=== PATIENT | male | born 1945 | race African-American/Black ===

== ENCOUNTER 2018-06-19 17:20 | Emergency (ER) | payer OTHER ==
[2018-06-19 19:02] LABS: Absolute Lymphocytes (CBC) 2.3 K/uL (0.7-4.9); Absolute Monocytes 0.4 K/uL (0.1-1.3); Absolute Neutrophil 2.4 K/uL (1.8-8.0); Basophils % 1.4 % (0-1.3); Eosinophils % 10.5 % (0-4.4); Lymphocytes % 39.4 % (15.3-44.8); MCH 30.8 pg (27.0-35.0); MCV 92.9 fL (80-100); MPV 8.6 fL (7.6-11.3); Monocytes % 7.3 % (3.3-12.3); RBC Red Blood Cell Count 4.19 M/uL (4.33-5.43)
[2018-06-19 19:17] LABS: Urine RBC >50 /HPF (NONE SEEN)
[2018-06-19 19:18] LABS: Calcium Oxalate Crystals- Ur MODERATE (NONE SEEN); Urine Bacteria >50 /HPF (NONE SEEN); Urine Culture Reflex Order REFLEXED; Urine Yeast FEW (NONE SEEN)
[2018-06-19 19:18] LABS: ALT/SGPT 17 U/L (12-78); AST/SGOT 8 U/L (15-37); Albumin 3.9 g/dL (3.4-5.0); Alkaline Phosphatase 63 U/L (45-117); BUN Blood Urea Nitrogen 27 mg/dL (7-18); Bicarbonate 26 mmol/L (21-32); Bilirubin Direct < 0.1 mg/dL (0-0.2); Bilirubin Total 0.2 mg/dL (0.2-1.0); Glucose Level 111 mg/dL (74-106); Lipase 165 U/L (73-393); Potassium 3.8 mmol/L (3.5-5.1); Protein, Total 7.4 g/dL (6.4-8.2); Sodium Level 144 mmol/L (136-145)
--- NOTE | 2018-06-19 19:27 | RAD REPORT ---
EXAM DESCRIPTION: CT - Stone Protocol - 06/19/2018 7:03 pm CLINICAL HISTORY: Abdominal pain, flank pain on the left, hematuria COMPARISON: KUB June 17. TECHNIQUE: Axial 5 mm thick images were obtained without oral or IV contrast. The [id number] span s the entirety of the system including uppermost abdomen and lung bases. All CT scans are performed using dose optimization technique as appropriate and may include automated exposure control or mA/KV adjustment according to patient size. FINDINGS: Patient has a 9 millimeter calcification in the left renal pelvis. There is very mild dila tation of the pelvis and calices on the left. Remainder the ureter is decompressed. No other obstruct ing or nonobstructing ureteral calculus. Patient has punctate calyx calcification posterior mid left kidney. No hydronephrosis or stone on the right. No suspicious renal masses. Isodense masses and pyel onephritis are not excluded on a stone protocol CT scan. Partially filled urinary bladder shows no smith spicious finding. Imaged portions of the liver, spleen and pancreas show no suspicious findings on non-contrast imaging . No gallbladder or biliary tree abnormality identified. No significant adrenal finding. No suspicious bowel findings. No mass or bulky lymphadenopathy. Patient has bilateral fat filled inguinal hernias. No acute compone nt at the hernia site. No free air, free fluid or inflammatory stranding. No significant bony abnormality. IMPRESSION: Approximately 9 millimeter left renal pelvis calcification causing mild dilatation of th e pelvis and calices. On a KUB projection the stone is near the left lateral margin of the L2-3 disc space. On retrospective review of the June 17 KUB, the calcification may be present superimposed on the the L2 left transverse process tip. Isodense masses and pyelonephritis are not excluded on stone protocol technique.
--- NOTE | 2018-06-19 20:02 | ER ---
Nurse's Notes [facility] Name: Bernard Smith Age: 72 yrs Sex: Male : 1945 Arrival Date: 06/19/2018 Time: 17:24 Bed 14 Private MD: Diagnosis: Calculus of kidney-Left Presentation: 06/19 17:24 Presenting complaint: Patient states: i have discoloration in my urine, its color red; hj it started Saturday, denies painful urination; reports minimal pain on the L flank area; denies fever and chills, nausea and vomiting; was sent by PCP for follow up to a urologist for the problem but couldn't get an appointment;. Transition of care: patient was not received from another setting of care. Onset of symptoms was June 19, 2018. Risk Assessment: Do you want to hurt yourself or someone else? Patient reports no desire to harm self or others. Initial Sepsis Screen: Does the patient meet any 2 criteria? No. Patient's initial sepsis screen is negative. Does the patient have a suspected source of infection? No. Patient's initial sepsis screen is negative. Care prior to arrival: None. 17:24 Method Of Arrival: Ambulatory 17:24 Acuity: ANDREY 4 hj Triage Assessment: 17:27 General: Appears in no apparent distress. uncomfortable, Behavior is calm, cooperative, hj appropriate for age. Pain: Denies pain. Historical: - Allergies: 17:26 No Known Allergies; hj - PMHx: 17:26 Hypertension; Diabetes - NIDDM; hj - PSHx: 17:26 None; hj - Immunization history:: Adult Immunizations up to date. - Social history:: Smoking status: Patient/guardian denies using tobacco, Patient uses alcohol. - Ebola Screening: : Patient negative for fever greater than or equal to 101.5 degrees Fahrenheit, and additional compatible Ebola Virus Disease symptoms Patient denies exposure to infectious person Patient denies travel to an Ebola-affected area in the 21 days before illness onset. Screenin:27 Abuse screen: Denies threats or abuse. Denies injuries from another. Nutritional hj screening: No deficits noted. Tuberculosis screening: No symptoms or risk factors identified. Fall Risk None identified. Assessment: 18:55 General: Appears in no apparent distress. comfortable, Behavior is calm, cooperative, jl7 appropriate for age. Pain: Denies pain. Neuro: Level of Consciousness is awake, alert, obeys commands, Oriented to person, place, time, situation. Cardiovascular: Patient's skin is warm and dry. Respiratory: Airway is patent Respiratory effort is even, unlabored, Respiratory pattern is regular, symmetrical. GI: No signs and/or symptoms were reported involving the gastrointestinal system. : Reports red colored urine Denies pain. EENT: No signs and/or symptoms were reported regarding the EENT system. Derm: Skin is dry, Skin is normal, Skin temperature is warm. Musculoskeletal: No signs and/or symptoms reported regarding the musculoskeletal system. 19:05 Reassessment: Returned from CT. ea 19:08 General: Appears in no apparent distress. Behavior is calm, cooperative, appropriate ea for age. Pain: Denies pain. Neuro: Level of Consciousness is awake, alert, obeys commands, Oriented to person, place, time, situation. Cardiovascular: Patient's skin is warm and dry. Respiratory: Airway is patent Respiratory effort is even, unlabored, Respiratory pattern is regular, symmetrical. GI: No signs and/or symptoms were reported involving the gastrointestinal system. : Reports pt reports red tinged urine. EENT: No signs and/or symptoms were reported regarding the EENT system. Derm: Skin is dry, Skin is normal, Skin temperature is warm. Musculoskeletal: No signs and/or symptoms reported regarding the musculoskeletal system. 20:18 Reassessment: Patient and/or family updated on plan of care and expected duration. Pain ea level reassessed. Patient is alert, oriented x 3, equal unlabored respirations, skin warm/dry/pink. Discharge instructions given to patient, verbalized the understanding of instruction Patient states feeling better. Vital Signs: 17:28 BP 163 / 80; Pulse 64; Resp 18; Temp 96.8(O); Pulse Ox 98% on R/A; Weight 127.01 kg; Height 6 ft. 4 in. (193.04 cm); Pain 0/10; 19:18 BP 160 / 98; Pulse 55; Resp 18; Pulse Ox 97% ; ea 20:20 BP 173 / 68; Pulse 60; Resp 18; Temp 97.6; Pulse Ox 100% ; ea 17:28 Body Mass Index 34.08 (127.01 kg, 193.04 cm) hj ED Course: 17:24 Patient arrived in ED. hj 17:26 Triage completed. hj 17:28 Arm band placed on left wrist. hj 17:28 Patient has correct armband on for positive identification. Bed in low position. Call hj light in reach. Side rails up X 1. 18:21 Rito Eisenberg PA is PHCP. cp 18:21 Thony Lobo MD is Attending Physician. cp 18:43 Rosemary Brar, JAREN is Primary Nurse. jl 18:[address] nj 18:55 Initial lab(s) drawn, by me, sent to lab. Inserted saline lock: 20 gauge in right jl7 antecubital area, using aseptic technique. Blood collected. 19:03 CT completed. Patient tolerated procedure well. Patient moved back from [place]. nj 19:04 CT Stone Protocol In Process Unspecified. EDMS 20:01 Abdiel Rueda MD is Referral Physician. cp 20:17 No provider procedures requiring assistance completed. IV discontinued, intact, ea bleeding controlled, No redness/swelling at site. Pressure dressing applied. Administered Medications: 20:08 Drug: Rocephin 1 grams Route: IV; Rate: bolus; Site: right antecubital; ea 20:20 Follow up: Response: No adverse reaction; IV Status: Completed infusion ea 20:15 Drug: Cipro 500 mg Route: PO; ea 20:23 Follow up: Response: No adverse reaction ea Outcome: 20:02 Discharge ordered by . cp 20:17 Condition: improved ea 20:17 Instructed on discharge instructions, Demonstrated understanding of instructions, follow-up care, medications, Prescriptions given X 3. 20:23 Discharged to home ambulatory, with family. ea 20:24 Patient left the ED. ea Signatures: Dispatcher [employer] EDMS Canelo Fraga RN RN hj Page, Corey, PA PA cp Jordan, Nathan nj Leal, Jahala, RN RN jl7 Era Zhu RN RN ea Corrections: (The following items were deleted from the chart) 17:28 17:24 Presenting complaint: Patient states: i have discoloration in my urine, its color hj red; it started Saturday, denies painful urination; reports minimal pain on the L flank area; denies fever and chills, nausea and vomiting; hj 17:32 17:28 Pulse 64bpm; Resp 18bpm; Pulse Ox 98% RA; Temp 96.8F Oral; 127.01 kg; Height 6 hj ft. 4 in.; BMI: 34.0; Pain 0/10; hj
--- NOTE | 2018-06-19 20:02 | EDPHYS ---
Physician Documentation [facility] Name: Bernard Smith Age: 72 yrs Sex: Male : 1945 Arrival Date: 06/19/2018 Time: 17:24 Bed 14 Private MD: ED Physician Thony Lobo HPI: 06/19 18:15 This 72 yrs old Black Male presents to ER via Ambulatory with complaints of Urinary cp Problem. 18:15 The patient presents with urinary symptoms, hematuria. cp 18:15 Onset: The symptoms/episode began/occurred 4 day(s) ago. Associated signs and symptoms: cp Pertinent positives: hematuria, left flank pain, Pertinent negatives: abdominal pain, fever, vomiting. Severity of symptoms: in the emergency department the symptoms are unchanged, despite EMS interventions. Historical: - Allergies: 17:26 No Known Allergies; hj - PMHx: 17:26 Hypertension; Diabetes - NIDDM; hj - PSHx: 17:26 None; hj - Immunization history:: Adult Immunizations up to date. - Social history:: Smoking status: Patient/guardian denies using tobacco, Patient uses alcohol. - Ebola Screening: : Patient negative for fever greater than or equal to 101.5 degrees Fahrenheit, and additional compatible Ebola Virus Disease symptoms Patient denies exposure to infectious person Patient denies travel to an Ebola-affected area in the 21 days before illness onset. ROS: 18:20 Constitutional: Negative for body aches, chills, fever, poor PO intake. cp 18:20 Eyes: Negative for injury, pain, redness, and discharge. cp 18:20 ENT: Negative for drainage from ear(s), ear pain, sore throat, difficulty swallowing, difficulty handling secretions. 18:20 Cardiovascular: Negative for chest pain, edema, palpitations. 18:20 Respiratory: Negative for cough, shortness of breath, wheezing. 18:20 Abdomen/GI: Negative for abdominal pain, nausea, vomiting, and diarrhea, black/tarry stool, rectal bleeding. 18:20 Back: Positive for flank pain, on the left, Negative for injury or acute deformity, decreased range of motion, pain at rest, pain with movement. 18:20 : Positive for hematuria, Negative for burning with urination. 18:20 Skin: Negative for cellulitis, rash. 18:20 Neuro: Negative for dizziness, headache, weakness. 18:20 All other systems are negative. Exam: 18:25 Constitutional: The patient appears in no acute distress, alert, awake, comfortable, cp non-diaphoretic, non-toxic, well developed, well nourished. 18:25 Head/Face: Normocephalic, atraumatic. cp 18:25 Eyes: Periorbital structures: appear normal, Conjunctiva: normal, no exudate, no injection, Sclera: no appreciated abnormality, Lids and lashes: appear normal, bilaterally. 18:25 ENT: External ear(s): are unremarkable, Nose: is normal, Mouth: Lips: moist, Oral mucosa: pink and intact, moist, Posterior pharynx: is normal, airway is patent, no erythema, no exudate. 18:25 Neck: ROM/movement: is normal, is supple, without pain, no range of motions limitations, no nuchal rigidity. 18:25 Chest/axilla: Inspection: normal, Palpation: is normal, no crepitus, no tenderness. 18:25 Cardiovascular: Rate: normal, Rhythm: regular. 18:25 Respiratory: the patient does not display signs of respiratory distress, Respirations: normal, no use of accessory muscles, no retractions, no splinting, no tachypnea, labored breathing, is not present, Breath sounds: are clear throughout, no decreased breath sounds, no stridor, no wheezing. 18:25 Abdomen/GI: Inspection: abdomen appears normal, Bowel sounds: active, all quadrants, Palpation: abdomen is soft and non-tender, in all quadrants, rebound tenderness, is not appreciated, voluntary guarding, is not appreciated, involuntary guarding, is not appreciated. 18:25 Back: CVA tenderness, that is mild, is noted on the left. 18:25 Skin: cellulitis, is not appreciated, no rash present. Vital Signs: 17:28 BP 163 / 80; Pulse 64; Resp 18; Temp 96.8(O); Pulse Ox 98% on R/A; Weight 127.01 kg; hj Height 6 ft. 4 in. (193.04 cm); Pain 0/10; 19:18 BP 160 / 98; Pulse 55; Resp 18; Pulse Ox 97% ; ea 20:20 BP 173 / 68; Pulse 60; Resp 18; Temp 97.6; Pulse Ox 100% ; ea 17:28 Body Mass Index 34.08 (127.01 kg, 193.04 cm) MDM: 18:21 Patient medically screened. 19:00 Differential diagnosis: UTI, prostatitis, urethritis, kidney stone. 19:59 Physician consultation: Abdiel Rueda MD was called at 19:50, was contacted at 19:50, regarding patient's condition, outpatient follow-up, tomorrow, and will see patient in office, tomorrow. 20:01 Data reviewed: vital signs, nurses notes, lab test result(s), radiologic studies, CT cp scan. 20:01 Counseling: I had a detailed discussion with the patient and/or guardian regarding: the cp historical points, exam findings, and any diagnostic results supporting the discharge/admit diagnosis, lab results, radiology results, the need for outpatient follow up, for definitive care, a urologist, to return to the emergency department if symptoms worsen or persist or if there are any questions or concerns that arise at home. 06/19 17:59 Order name: Urine Microscopic Only; Complete Time: 19:20 06/19 19:20 Interpretation: Normal except: URBC >50; UBACT >50; CAOX MODERATE. 06/19 18:43 Order name: Basic Metabolic Panel; Complete Time: 19:20 /13 19:45 Interpretation: Normal except: CL 113; GLUC 111; BUN 27; GFR 89. /13 18:43 Order name: CBC with Diff; Complete Time: 19:20 /13 19:46 Interpretation: Normal except: RBC 4.19; HGB 12.9; HCT 39.0; ALEXUS% 41.4; EOSINOPHIL % cp 10.5; BASO% 1.4; EOSA 0.6. 06/19 18:43 Order name: Creatinine for Radiology; Complete Time: 19:20 06/19 18:43 Order name: Hepatic Function; Complete Time: 19:20 12/13 19:46 Interpretation: Normal except: AST 8. 06/19 18:43 Order name: Lipase; Complete Time: 19:20 /13 17:59 Order name: Urine Dipstick-Ancillary (obtain specimen); Complete Time: 17:59 06/19 18:43 Order name: IV Saline Lock; Complete Time: 18:59 06/19 18:43 Order name: Labs collected and sent; Complete Time: 18:59 06/19 18:48 Order name: CT Stone Protocol; Complete Time: 19:44 06/19 19:20 Order name: Urine Culture EDMS Administered Medications: 20:08 Drug: Rocephin 1 grams Route: IV; Rate: bolus; Site: right antecubital; ea 20:20 Follow up: Response: No adverse reaction; IV Status: Completed infusion ea 20:15 Drug: Cipro 500 mg Route: PO; ea 20:23 Follow up: Response: No adverse reaction ea Disposition: 06/19/18 20:02 Discharged to Home. Impression: Calculus of kidney - Left. - Condition is Stable. - Discharge Instructions: Kidney Stones. - Prescriptions for Cipro 500 mg Oral Tablet - take 1 tablet by ORAL route every 12 hours for 7 days; 14 tablet. Tylenol- Codeine #3 300-30 mg Oral Tablet - take 2 tablets by ORAL route every 6 hours As needed; 15 tablet. Zofran 4 mg Oral Tablet - take 1 tablet by ORAL route every 12 hours As needed; 20 tablet. - Medication Reconciliation Form, Thank You Letter, Antibiotic Education, Prescription Opioid Use form. - Follow up: Abdiel Rueda MD; When: Tomorrow; Reason: Recheck today's complaints, at 0800. - Problem is new. - Symptoms have improved. Signatures: Dispatcher [employer] EDMS Canelo Fraga RN RN Rito Landeros PA PA cp Antunez, Elena, RN RN ivan Corrections: (The following items were deleted from the chart) 19:46 19:46 Normal except: RBC 4.19; HGB 12.9; HCT 39.0; ALEXUS% 41.4; EOSINOPHIL % 10.5; BASO% cp 1.4. cp 20:24 20:02 06/19/2018 20:02 Discharged to Home. Impression: Calculus of kidney - Left. ea Condition is Stable. Forms are Medication Reconciliation Form, Thank You Letter, Antibiotic Education, Prescription Opioid Use. Follow up: Abdiel Rueda; When: Tomorrow; Reason: Recheck today's complaints, at 0800. Problem is new. Symptoms have improved. cp
[2018-06-19] MEDS ORDERED: CEFTRIAXONE/SWI 1gm 1 GM/10 ML SYR ONE (20:18)
[2018-06-19] MEDS ORDERED: CIPROFLOXACIN HCL 500 MG TAB ONE (20:18)
== END 2018-06-19 20:24 | disposition home or self-care (01) ==
LOC: ER 17:20
DX: N20.0 Calculus of kidney (principal); I10 Essential (primary) hypertension
CPT/HCPCS: 36415; 74176; 76377; 80048; 80076; 81015; 83690; 85025; 87086; 87088; 96374; 99284; J0696

== ENCOUNTER 2023-09-13 11:12 | Inpatient (IN) | payer OTHER ==
--- OUTSIDE RECORDS SUMMARY | 2023-09-13 11:15 | XMS REPORT | Continuity of Care Document ---
Author Name Unknown Address [address] [facility] [address] [place] [id number] [facility] Address [address] [facility] [address] [place] [address] Care Team Providers Care Restaurant Assistant Manager Name Role Phone Calixto Greene Attending Clinician Unavailable Lab, Adc Fam Pob I Attending Clinician Unavailab Amrita Gardner Attending Clinician AMRITA LLOYD Attending Clinician Unavailable Payers Payer Name Policy Type Policy Number Effective Date Expirati on Date Source MEDICARE NOVITAS MB [id number] 2011 00:00:00 [facility] AET[employer] C1 [id number] 2020 00:00:00 [facility] A[employer] MEDICARE ADV [id number] 2019 00:00:00 Problems Condition Name Condition Details Condition Category Status Onset Date Resolution Date Last Treatment Date Treating Clinician Comments Source [id number] Overactive bladder Problem [facility] [id number] Elevated PSA, less than 10 ng/ml Problem [facility] [id number] Memory change Problem [facility] [id number] Prostate nodule Problem [facility] [id number] Urge incontinen ce Problem [facility] [id number] Benign prostatic hyperplasi a with lower urinary tract symptoms Problem [facility] [id number] Family history of prostate cancer in father Problem [facility] [id number] Microscopi c hematuria Problem [facility] [id number] Adult BMI 33.0-33.9 kg/sq m Problem [facility] [id number] assisted (current) use of insulin Problem [facility] [id number] Prostate cancer screening Problem [facility] [id number] Type 2 diabetes mellitus with other diabetic kidney complicati on Problem [facility] [id number] Morbid (severe) obesity due to excess calories Problem [facility] [id number] Type 2 diabetes mellitus with hyperglyce erasto Problem [facility] [id number] Mixed hyperlipid emia Problem [facility] [id number] Hypertensi on, essential Problem [facility] [id number] Other obstructiv e and reflux uropathy Problem [facility] [id number] Left nephrolith iasis Problem [facility] Allergies, Adverse Reactions, Alerts Allergy Name Allergy Type Status Severity Reaction(s) Onset Date Inactive Date Treating Clinician Comments Source NO KNOWN ALLERGIE S Drug Class Active [facility] Social History Social Habit Start Date Stop Date Quantity Comments Source History of Tobacco Use [facility] Sex Assigned At [facility] Exposure to SARS-CoV-2 (event) Not sure [facility] Smoking Status Start Date Stop Date Source Unknown if ever smoked [facility] Never Smoker [facility] Former Smoker 2022-08-09 00:00:00 2022-08-09 00:00:00 [facility] Medications Ordered Medication Name Filled Medication Name Start Date Stop Date Current Medication? Ordering Clinician Indication Dosage Frequency Signature (SIG) Comments Components Source Tamsulosin HCl 0.4 MG Tamsulosin HCl 0.4 MG 02-06 00:00: 00 No 1{capsu le} BID Tamsulosin HCl 0.4 MG Tamsulosin HCl 0.4 MG Tamsulosin HCl 0.4 MG 02 00:00: 00 No 1{capsu le} BID Tamsulosin HCl 0.4 MG Simvastatin 20 MG Simvastatin 20 MG No 1{table t_in e_eveni ng} QD Simvastati n 20 MG metFORMIN HCl ER 500 MG metFORMIN HCl ER 500 MG No 2{table t} BID metFORMIN HCl ER 500 MG Tresiba FlexTouch 100 UNIT/ML Tresiba FlexTouch 100 UNIT/ML No QD Tresiba FlexTouch 100 UNIT/ML NovoFine Plus 32G X 4 MM NovoFine Plus 32G X 4 MM No NovoFine Plus 32G X 4 MM amLODIPine Besylate 10 MG amLODIPine Besylate 10 MG No 1{table t} QD amLODIPine Besylate 10 MG NovoFine Plus 32G X 4 MM NovoFine Plus 32G X 4 MM No QD NovoFine Plus 32G X 4 MM Lisinopril- hydroCHLORO thiazide 20-12.5 MG Lisinopril- hydroCHLORO thiazide 20-12.5 MG No 1{table t} TID Lisinopril -hydroCHLO ROthiazide 20-12.5 MG Lisinopril- hydroCHLORO thiazide 20-12.5 MG Lisinopril- hydroCHLORO thiazide 20-12.5 MG No 1{table t} TID Lisinopril -hydroCHLO ROthiazide 20-12.5 MG Aspirin 81 81 MG Aspirin 81 81 MG No 1{table t} QD Aspirin 81 81 MG metFORMIN HCl ER 500 MG metFORMIN HCl ER 500 MG No metFORMIN HCl ER 500 MG Vitamin D3 25 MCG/SPRAY Vitamin D3 25 MCG/SPRAY No 1{spray _under_ the_ton avril} QD Vitamin D3 25 MCG/SPRAY Metoprolol Succinate ER 100 MG Metoprolol Succinate ER 100 MG No 1{table t} QD Metoprolol Succinate ER 100 MG Metoprolol Succinate ER 100 MG Metoprolol Succinate ER 100 MG No Metoprolol Succinate ER 100 MG Simvastatin 20 MG Simvastatin 20 MG No 1{table t_in e_eveni ng} QD Simvastati n 20 MG metFORMIN HCl ER 500 MG metFORMIN HCl ER 500 MG No 2{table t} BID metFORMIN HCl ER 500 MG Tresiba FlexTouch 100 UNIT/ML Tresiba FlexTouch 100 UNIT/ML No QD Tresiba FlexTouch 100 UNIT/ML NovoFine Plus 32G X 4 MM NovoFine Plus 32G X 4 MM No NovoFine Plus 32G X 4 MM Metoprolol Succinate ER 100 MG Metoprolol Succinate ER 100 MG No 1{table t} QD Metoprolol Succinate ER 100 MG NovoFine Plus 32G X 4 MM NovoFine Plus 32G X 4 MM No QD NovoFine Plus 32G X 4 MM Lisinopril- hydroCHLORO thiazide 20-12.5 MG Lisinopril- hydroCHLORO thiazide 20-12.5 MG No 1{table t} TID Lisinopril -hydroCHLO ROthiazide 20-12.5 MG Lisinopril- hydroCHLORO thiazide 20-12.5 MG Lisinopril- hydroCHLORO thiazide 20-12.5 MG No 1{table t} TID Lisinopril -hydroCHLO ROthiazide 20-12.5 MG Aspirin 81 81 MG Aspirin 81 81 MG No 1{table t} QD Aspirin 81 81 MG metFORMIN HCl ER 500 MG metFORMIN HCl ER 500 MG No metFORMIN HCl ER 500 MG Vitamin D3 25 MCG/SPRAY Vitamin D3 25 MCG/SPRAY No 1{spray _under_ the_ton avril} QD Vitamin D3 25 MCG/SPRAY amLODIPine Besylate 10 MG amLODIPine Besylate 10 MG No 1{table t} QD amLODIPine Besylate 10 MG Metoprolol Succinate ER 100 MG Metoprolol Succinate ER 100 MG No Metoprolol Succinate ER 100 MG amLODIPine Besylate 10 MG amLODIPine Besylate 10 MG No 1{table t} QD amLODIPine Besylate 10 MG Lisinopril- hydroCHLORO thiazide 20-12.5 MG Lisinopril- hydroCHLORO thiazide 20-12.5 MG No 1{table t} TID Lisinopril -hydroCHLO ROthiazide 20-12.5 MG Tresiba FlexTouch 100 UNIT/ML Tresiba FlexTouch 100 UNIT/ML No QD Tresiba FlexTouch 100 UNIT/ML Metoprolol Succinate ER 100 MG Metoprolol Succinate ER 100 MG No 1{table t} QD Metoprolol Succinate ER 100 MG Simvastatin 20 MG Simvastatin 20 MG No 1{table t_in_th e_eveni ng} QD Simvastati n 20 MG NovoFine Plus 32G X 4 MM NovoFine Plus 32G X 4 MM No NovoFine Plus 32G X 4 MM metFORMIN HCl ER 500 MG metFORMIN HCl ER 500 MG No 2{table t} BID metFORMIN HCl ER 500 MG amLODIPine Besylate 10 MG amLODIPine Besylate 10 MG No 1{table t} QD amLODIPine Besylate 10 MG Lisinopril- hydroCHLORO thiazide 20-12.5 MG Lisinopril- hydroCHLORO thiazide 20-12.5 MG No 1{table t} TID Lisinopril -hydroCHLO ROthiazide 20-12.5 MG Tresiba FlexTouch 100 UNIT/ML Tresiba FlexTouch 100 UNIT/ML No QD Tresiba FlexTouch 100 UNIT/ML Metoprolol Succinate ER 100 MG Metoprolol Succinate ER 100 MG No 1{table t} QD Metoprolol Succinate ER 100 MG Simvastatin 20 MG Simvastatin 20 MG No 1{table t_in_ e_eveni ng} QD Simvastati n 20 MG NovoFine Plus 32G X 4 MM NovoFine Plus 32G X 4 MM No NovoFine Plus 32G X 4 MM metFORMIN HCl ER 500 MG metFORMIN HCl ER 500 MG No 2{table t} BID metFORMIN HCl ER 500 MG Simvastatin 20 MG Simvastatin 20 MG No 1{table t_in_ e_eveni ng} QD Simvastati n 20 MG Simvastatin 20 MG Simvastatin 20 MG No 1{table t_in e_eveni ng} QD Simvastati n 20 MG Metoprolol Succinate ER 100 MG Metoprolol Succinate ER 100 MG No 1{table t} QD Metoprolol Succinate ER 100 MG metFORMIN HCl ER 500 MG metFORMIN HCl ER 500 MG No metFORMIN HCl ER 500 MG metFORMIN HCl ER 500 MG metFORMIN HCl ER 500 MG No 2{table t} BID metFORMIN HCl ER 500 MG Metoprolol Succinate ER 100 MG Metoprolol Succinate ER 100 MG No Metoprolol Succinate ER 100 MG Tresiba FlexTouch 100 UNIT/ML Tresiba FlexTouch 100 UNIT/ML No QD Tresiba FlexTouch 100 UNIT/ML amLODIPine Besylate 10 MG amLODIPine Besylate 10 MG No 1{table t} QD amLODIPine Besylate 10 MG NovoFine Plus 32G X 4 MM NovoFine Plus 32G X 4 MM No NovoFine Plus 32G X 4 MM Lisinopril- hydroCHLORO thiazide 20-12.5 MG Lisinopril- hydroCHLORO thiazide 20-12.5 MG No 1{table t} QD Lisinopril -hydroCHLO ROthiazide 20-12.5 MG Simvastatin 20 MG Simvastatin 20 MG No 1{table t_in e_eveni ng} QD Simvastati n 20 MG metFORMIN HCl ER 500 MG metFORMIN HCl ER 500 MG No metFORMIN HCl ER 500 MG Metoprolol Succinate ER 100 MG Metoprolol Succinate ER 100 MG No Metoprolol Succinate ER 100 MG Simvastatin 20 MG Simvastatin 20 MG No 1{table t_in e_eveni ng} QD Simvastati n 20 MG Lisinopril- hydroCHLORO thiazide 20-12.5 MG Lisinopril- hydroCHLORO thiazide 20-12.5 MG No Lisinopril -hydroCHLO ROthiazide 20-12.5 MG Tresiba FlexTouch 100 UNIT/ML Tresiba FlexTouch 100 UNIT/ML No QD Tresiba FlexTouch 100 UNIT/ML amLODIPine Besylate 10 MG amLODIPine Besylate 10 MG No 1{table t} QD amLODIPine Besylate 10 MG metFORMIN HCl ER 500 MG metFORMIN HCl ER 500 MG No 2{table t} BID metFORMIN HCl ER 500 MG NovoFine Plus 32G X 4 MM NovoFine Plus 32G X 4 MM No NovoFine Plus 32G X 4 MM Lisinopril- hydroCHLORO thiazide 20-12.5 MG Lisinopril- hydroCHLORO thiazide 20-12.5 MG No 1{table t} QD Lisinopril -hydroCHLO ROthiazide 20-12.5 MG Metoprolol Succinate ER 100 MG Metoprolol Succinate ER 100 MG No 1{table t} QD Metoprolol Succinate ER 100 MG Aspir-81 Aspir-81 No Aspir-81 Metoprolol Succinate ER 100 MG Metoprolol Succinate ER 100 MG No 1{table t} QD Metoprolol Succinate ER 100 MG Vitamin D3 Vitamin D3 No Vitamin D3 Lisinopril- hydroCHLORO thiazide 20-12.5 MG Lisinopril- hydroCHLORO thiazide 20-12.5 MG No 1{table t} BID Lisinopril -hydroCHLO ROthiazide 20-12.5 MG Iron Iron No Iron NovoFine Plus 32G X 4 MM NovoFine Plus 32G X 4 MM No NovoFine Plus 32G X 4 MM metFORMIN HCl ER 500 MG metFORMIN HCl ER 500 MG No metFORMIN HCl ER 500 MG Vitamin B Complex Vitamin B Complex No Vitamin B Complex Lisinopril- hydroCHLORO thiazide 20-12.5 MG Lisinopril- hydroCHLORO thiazide 20-12.5 MG No Lisinopril -hydroCHLO ROthiazide 20-12.5 MG metFORMIN HCl ER 500 MG metFORMIN HCl ER 500 MG No 2{table t} BID metFORMIN HCl ER 500 MG Vitamin B12 Vitamin B12 No Vi tamin B12 Simvastatin 20 MG Simvastatin 20 MG No 1{table t_in e_eveni ng} QD Simvastati n 20 MG Donepezil HCl 23 MG Donepezil HCl 23 MG No 1{table t_at_be dtime} QD Donepezil HCl 23 MG Simvastatin 20 MG Simvastatin 20 MG No 1{table t_in e_eveni ng} QD Simvastati n 20 MG Metoprolol Succinate ER 100 MG Metoprolol Succinate ER 100 MG No Metoprolol Succinate ER 100 MG Tresiba FlexTouch 100 UNIT/ML Tresiba FlexTouch 100 UNIT/ML No QD Tresiba FlexTouch 100 UNIT/ML amLODIPine Besylate 10 MG amLODIPine Besylate 10 MG No 1{table t} QD amLODIPine Besylate 10 MG Aspir-81 Aspir-81 No Aspir-81 Metoprolol Succinate ER 100 MG Metoprolol Succinate ER 100 MG No 1{table t} QD Metoprolol Succinate ER 100 MG Vitamin D3 Vitamin D3 No Vitamin D3 Lisinopril- hydroCHLORO thiazide 20-12.5 MG Lisinopril- hydroCHLORO thiazide 20-12.5 MG No 1{table t} BID Lisinopril -hydroCHLO ROthiazide 20-12.5 MG Iron Iron No Iron NovoFine Plus 32G X 4 MM NovoFine Plus 32G X 4 MM No NovoFine Plus 32G X 4 MM metFORMIN HCl ER 500 MG metFORMIN HCl ER 500 MG No metFORMIN HCl ER 500 MG Vitamin B Complex Vitamin B Complex No Vitamin B Complex Lisinopril- hydroCHLORO thiazide 20-12.5 MG Lisinopril- hydroCHLORO thiazide 20-12.5 MG No Lisinopril -hydroCHLO ROthiazide 20-12.5 MG metFORMIN HCl ER 500 MG metFORMIN HCl ER 500 MG No 2{table t} BID metFORMIN HCl ER 500 MG Vitamin B12 Vitamin B12 No Vi tamin B12 Simvastatin 20 MG Simvastatin 20 MG No 1{table t_in e_eveni ng} QD Simvastati n 20 MG Donepezil HCl 23 MG Donepezil HCl 23 MG No 1{table t_at_be dtime} QD Donepezil HCl 23 MG Simvastatin 20 MG Simvastatin 20 MG No 1{table t_in e_eveni ng} QD Simvastati n 20 MG Metoprolol Succinate ER 100 MG Metoprolol Succinate ER 100 MG No Metoprolol Succinate ER 100 MG Tresiba FlexTouch 100 UNIT/ML Tresiba FlexTouch 100 UNIT/ML No QD Tresiba FlexTouch 100 UNIT/ML amLODIPine Besylate 10 MG amLODIPine Besylate 10 MG No 1{table t} QD amLODIPine Besylate 10 MG Iron Iron No Iron Tresiba FlexTouch 100 UNIT/ML Tresiba FlexTouch 100 UNIT/ML No QD Tresiba FlexTouch 100 UNIT/ML Metoprolol Succinate ER 100 MG Metoprolol Succinate ER 100 MG No 1{table t} QD Metoprolol Succinate ER 100 MG Metoprolol Succinate ER 100 MG Metoprolol Succinate ER 100 MG No 1{table t} QD Metoprolol Succinate ER 100 MG Simvastatin 20 MG Simvastatin 20 MG No 1{table t_in e_eveni ng} QD Simvastati n 20 MG Vitamin B12 Vitamin B12 No Vi tamin B12 metFORMIN HCl ER 500 MG metFORMIN HCl ER 500 MG No 2{table t} BID metFORMIN HCl ER 500 MG Tamsulosin HCl 0.4 MG Tamsulosin HCl 0.4 MG No 1{capsu le} QD Tamsulosin HCl 0.4 MG Vitamin D3 Vitamin D3 No Vitamin D3 amLODIPine Besylate 10 MG amLODIPine Besylate 10 MG No 1{table t} QD amLODIPine Besylate 10 MG NovoFine Plus 32G X 4 MM NovoFine Plus 32G X 4 MM No NovoFine Plus 32G X 4 MM amLODIPine Besylate 10 MG amLODIPine Besylate 10 MG No 1{table t} QD amLODIPine Besylate 10 MG Vitamin B Complex Vitamin B Complex No Vitamin B Complex Lisinopril- hydroCHLORO thiazide 20-12.5 MG Lisinopril- hydroCHLORO thiazide 20-12.5 MG No 1{table t} QD Lisinopril -hydroCHLO ROthiazide 20-12.5 MG Donepezil HCl 23 MG Donepezil HCl 23 MG No 1{table t_at_be dtime} QD Donepezil HCl 23 MG Aspir-81 Aspir-81 No Aspir-81 Iron Iron No Iron Tresiba FlexTouch 100 UNIT/ML Tresiba FlexTouch 100 UNIT/ML No QD Tresiba FlexTouch 100 UNIT/ML amLODIPine Besylate 5 MG amLODIPine Besylate 5 MG No 1{table t} BID amLODIPine Besylate 5 MG Metoprolol Succinate ER 100 MG Metoprolol Succinate ER 100 MG No 1{table t} QD Metoprolol Succinate ER 100 MG Simvastatin 20 MG Simvastatin 20 MG No 1{table t_in_ e_eveni ng} QD Simvastati n 20 MG Vitamin B12 Vitamin B12 No Vi tamin B12 metFORMIN HCl ER 500 MG metFORMIN HCl ER 500 MG No 2{table t} BID metFORMIN HCl ER 500 MG Tamsulosin HCl 0.4 MG Tamsulosin HCl 0.4 MG No 1{capsu le} QD Tamsulosin HCl 0.4 MG Vitamin D3 Vitamin D3 No Vitamin D3 Donepezil HCl 23 MG Donepezil HCl 23 MG No 1{table t_at_be dtime} QD Donepezil HCl 23 MG NovoFine Plus 32G X 4 MM NovoFine Plus 32G X 4 MM No NovoFine Plus 32G X 4 MM Metoprolol Succinate ER 100 MG Metoprolol Succinate ER 100 MG No 1{table t} QD Metoprolol Succinate ER 100 MG Vitamin B Complex Vitamin B Complex No Vitamin B Complex Lisinopril- hydroCHLORO thiazide 20-12.5 MG Lisinopril- hydroCHLORO thiazide 20-12.5 MG No 1{table t} QD Lisinopril -hydroCHLO ROthiazide 20-12.5 MG amLODIPine Besylate 10 MG amLODIPine Besylate 10 MG No 1{table t} QD amLODIPine Besylate 10 MG Aspir-81 Aspir-81 No Aspir-81 Iron Iron No Iron Tresiba FlexTouch 100 UNIT/ML Tresiba FlexTouch 100 UNIT/ML No QD Tresiba FlexTouch 100 UNIT/ML amLODIPine Besylate 5 MG amLODIPine Besylate 5 MG No 1{table t} BID amLODIPine Besylate 5 MG Metoprolol Succinate ER 100 MG Metoprolol Succinate ER 100 MG No 1{table t} QD Metoprolol Succinate ER 100 MG Simvastatin 20 MG Simvastatin 20 MG No 1{table t_in e_eveni ng} QD Simvastati n 20 MG Vitamin B12 Vitamin B12 No Vi tamin B12 metFORMIN HCl ER 500 MG metFORMIN HCl ER 500 MG No 2{table t} BID metFORMIN HCl ER 500 MG Tamsulosin HCl 0.4 MG Tamsulosin HCl 0.4 MG No 1{capsu le} QD Tamsulosin HCl 0.4 MG Vitamin D3 Vitamin D3 No Vitamin D3 Donepezil HCl 23 MG Donepezil HCl 23 MG No 1{table t_at_be dtime} QD Donepezil HCl 23 MG NovoFine Plus 32G X 4 MM NovoFine Plus 32G X 4 MM No NovoFine Plus 32G X 4 MM Metoprolol Succinate ER 100 MG Metoprolol Succinate ER 100 MG No 1{table t} QD Metoprolol Succinate ER 100 MG Vitamin B Complex Vitamin B Complex No Vitamin B Complex Lisinopril- hydroCHLORO thiazide 20-12.5 MG Lisinopril- hydroCHLORO thiazide 20-12.5 MG No 1{table t} QD Lisinopril -hydroCHLO ROthiazide 20-12.5 MG amLODIPine Besylate 10 MG amLODIPine Besylate 10 MG No 1{table t} QD amLODIPine Besylate 10 MG Aspir-81 Aspir-81 No Aspir-81 Iron Iron No Iron Tresiba FlexTouch 100 UNIT/ML Tresiba FlexTouch 100 UNIT/ML No QD Tresiba FlexTouch 100 UNIT/ML amLODIPine Besylate 5 MG amLODIPine Besylate 5 MG No 1{table t} BID amLODIPine Besylate 5 MG Metoprolol Succinate ER 100 MG Metoprolol Succinate ER 100 MG No 1{table t} QD Metoprolol Succinate ER 100 MG Simvastatin 20 MG Simvastatin 20 MG No 1{table t_in e_eveni ng} QD Simvastati n 20 MG Vitamin B12 Vitamin B12 No Vi tamin B12 metFORMIN HCl ER 500 MG metFORMIN HCl ER 500 MG No 2{table t} BID metFORMIN HCl ER 500 MG Tamsulosin HCl 0.4 MG Tamsulosin HCl 0.4 MG No 1{capsu le} QD Tamsulosin HCl 0.4 MG Vitamin D3 Vitamin D3 No Vitamin D3 Donepezil HCl 23 MG Donepezil HCl 23 MG No 1{table t_at_be dtime} QD Donepezil HCl 23 MG NovoFine Plus 32G X 4 MM NovoFine Plus 32G X 4 MM No NovoFine Plus 32G X 4 MM Metoprolol Succinate ER 100 MG Metoprolol Succinate ER 100 MG No 1{table t} QD Metoprolol Succinate ER 100 MG Vitamin B Complex Vitamin B Complex No Vitamin B Complex Lisinopril- hydroCHLORO thiazide 20-12.5 MG Lisinopril- hydroCHLORO thiazide 20-12.5 MG No 1{table t} QD Lisinopril -hydroCHLO ROthiazide 20-12.5 MG amLODIPine Besylate 10 MG amLODIPine Besylate 10 MG No 1{table t} QD amLODIPine Besylate 10 MG Aspir-81 Aspir-81 No Aspir-81 Iron Iron No Iron Tresiba FlexTouch 100 UNIT/ML Tresiba FlexTouch 100 UNIT/ML No QD Tresiba FlexTouch 100 UNIT/ML amLODIPine Besylate 5 MG amLODIPine Besylate 5 MG No 1{table t} BID amLODIPine Besylate 5 MG Metoprolol Succinate ER 100 MG Metoprolol Succinate ER 100 MG No 1{table t} QD Metoprolol Succinate ER 100 MG Simvastatin 20 MG Simvastatin 20 MG No 1{table t_in_th e_eveni ng} QD Simvastati n 20 MG Vitamin B12 Vitamin B12 No Vi tamin B12 metFORMIN HCl ER 500 MG metFORMIN HCl ER 500 MG No 2{table t} BID metFORMIN HCl ER 500 MG Tamsulosin HCl 0.4 MG Tamsulosin HCl 0.4 MG No 1{capsu le} QD Tamsulosin HCl 0.4 MG Vitamin D3 Vitamin D3 No Vitamin D3 Donepezil HCl 23 MG Donepezil HCl 23 MG No 1{table t_at_be dtime} QD Donepezil HCl 23 MG NovoFine Plus 32G X 4 MM NovoFine Plus 32G X 4 MM No NovoFine Plus 32G X 4 MM Metoprolol Succinate ER 100 MG Metoprolol Succinate ER 100 MG No 1{table t} QD Metoprolol Succinate ER 100 MG Vitamin B Complex Vitamin B Complex No Vitamin B Complex Lisinopril- hydroCHLORO thiazide 20-12.5 MG Lisinopril- hydroCHLORO thiazide 20-12.5 MG No 1{table t} QD Lisinopril -hydroCHLO ROthiazide 20-12.5 MG amLODIPine Besylate 10 MG amLODIPine Besylate 10 MG No 1{table t} QD amLODIPine Besylate 10 MG Aspir-81 Aspir-81 No Aspir-81 Iron Iron No Iron Tresiba FlexTouch 100 UNIT/ML Tresiba FlexTouch 100 UNIT/ML No QD Tresiba FlexTouch 100 UNIT/ML amLODIPine Besylate 5 MG amLODIPine Besylate 5 MG No 1{table t} BID amLODIPine Besylate 5 MG Metoprolol Succinate ER 100 MG Metoprolol Succinate ER 100 MG No 1{table t} QD Metoprolol Succinate ER 100 MG Simvastatin 20 MG Simvastatin 20 MG No 1{table t_in_th e_eveni ng} QD Simvastati n 20 MG Vitamin B12 Vitamin B12 No Vi tamin B12 metFORMIN HCl ER 500 MG metFORMIN HCl ER 500 MG No 2{table t} BID metFORMIN HCl ER 500 MG Tamsulosin HCl 0.4 MG Tamsulosin HCl 0.4 MG No 1{capsu le} QD Tamsulosin HCl 0.4 MG Vitamin D3 Vitamin D3 No Vitamin D3 Donepezil HCl 23 MG Donepezil HCl 23 MG No 1{table t_at_be dtime} QD Donepezil HCl 23 MG NovoFine Plus 32G X 4 MM NovoFine Plus 32G X 4 MM No NovoFine Plus 32G X 4 MM Metoprolol Succinate ER 100 MG Metoprolol Succinate ER 100 MG No 1{table t} QD Metoprolol Succinate ER 100 MG Vitamin B Complex Vitamin B Complex No Vitamin B Complex Lisinopril- hydroCHLORO thiazide 20-12.5 MG Lisinopril- hydroCHLORO thiazide 20-12.5 MG No 1{table t} QD Lisinopril -hydroCHLO ROthiazide 20-12.5 MG amLODIPine Besylate 10 MG amLODIPine Besylate 10 MG No 1{table t} QD amLODIPine Besylate 10 MG Aspir-81 Aspir-81 No Aspir-81 Vitamin D3 Vitamin D3 No Vitamin D3 Vitamin B Complex Vitamin B Complex No Vitamin B Complex amLODIPine Besylate 10 MG amLODIPine Besylate 10 MG No 1{table t} QD amLODIPine Besylate 10 MG amLODIPine Besylate 5 MG amLODIPine Besylate 5 MG No 1{table t} BID amLODIPine Besylate 5 MG Metoprolol Succinate ER 100 MG Metoprolol Succinate ER 100 MG No 1{table t} QD Metoprolol Succinate ER 100 MG Tresiba FlexTouch 100 UNIT/ML Tresiba FlexTouch 100 UNIT/ML No QD Tresiba FlexTouch 100 UNIT/ML Lisinopril- hydroCHLORO thiazide 20-12.5 MG Lisinopril- hydroCHLORO thiazide 20-12.5 MG No 1{table t} QD Lisinopril -hydroCHLO ROthiazide 20-12.5 MG Vitamin B12 Vitamin B12 No Vi tamin B12 Donepezil HCl 23 MG Donepezil HCl 23 MG No 1{table t_at_be dtime} QD Donepezil HCl 23 MG Simvastatin 20 MG Simvastatin 20 MG No 1{table t_in e_eveni ng} QD Simvastati n 20 MG Tamsulosin HCl 0.4 MG Tamsulosin HCl 0.4 MG No 1{capsu le} QD Tamsulosin HCl 0.4 MG metFORMIN HCl ER 500 MG metFORMIN HCl ER 500 MG No 2{table t} BID metFORMIN HCl ER 500 MG NovoFine Plus 32G X 4 MM NovoFine Plus 32G X 4 MM No NovoFine Plus 32G X 4 MM Iron Iron No Iron Aspir-81 Aspir-81 No Aspir-81 Metoprolol Succinate ER 100 MG Metoprolol Succinate ER 100 MG No 1{table t} QD Metoprolol Succinate ER 100 MG Simvastatin 20 MG Simvastatin 20 MG No 1{table t_in e_eveni ng} QD Simvastati n 20 MG Simvastatin 20 MG Simvastatin 20 MG No 1{table t_in e_eveni ng} QD Simvastati n 20 MG Metoprolol Succinate ER 100 MG Metoprolol Succinate ER 100 MG No 1{table t} QD Metoprolol Succinate ER 100 MG metFORMIN HCl ER 500 MG metFORMIN HCl ER 500 MG No metFORMIN HCl ER 500 MG metFORMIN HCl ER 500 MG metFORMIN HCl ER 500 MG No 2{table t} BID metFORMIN HCl ER 500 MG Metoprolol Succinate ER 100 MG Metoprolol Succinate ER 100 MG No Metoprolol Succinate ER 100 MG Tresiba FlexTouch 100 UNIT/ML Tresiba FlexTouch 100 UNIT/ML No QD Tresiba FlexTouch 100 UNIT/ML amLODIPine Besylate 10 MG amLODIPine Besylate 10 MG No 1{table t} QD amLODIPine Besylate 10 MG NovoFine Plus 32G X 4 MM NovoFine Plus 32G X 4 MM No NovoFine Plus 32G X 4 MM Lisinopril- hydroCHLORO thiazide 20-12.5 MG Lisinopril- hydroCHLORO thiazide 20-12.5 MG No 1{table t} QD Lisinopril -hydroCHLO ROthiazide 20-12.5 MG Metoprolol Succinate ER 100 MG Metoprolol Succinate ER 100 MG No 1{table t} QD Aspirin 81 81 MG Aspirin 81 81 MG No 1{table t} QD NovoFine Plus 32G X 4 MM NovoFine Plus 32G X 4 MM No QD Metoprolol Succinate ER 100 MG Metoprolol Succinate ER 100 MG No metFORMIN HCl ER 500 MG metFORMIN HCl ER 500 MG No amLODIPine Besylate 10 MG amLODIPine Besylate 10 MG No 1{table t} QD Simvastatin 20 MG Simvastatin 20 MG No 1{table t_in_ e_eveni ng} QD Vitamin D3 25 MCG/SPRAY Vitamin D3 25 MCG/SPRAY No 1{spray _under_ the_ton avril} QD metFORMIN HCl ER 500 MG metFORMIN HCl ER 500 MG No 2{table t} BID Tresiba FlexTouch 100 UNIT/ML Tresiba FlexTouch 100 UNIT/ML No QD Lisinopril- hydroCHLORO thiazide 20-12.5 MG Lisinopril- hydroCHLORO thiazide 20-12.5 MG No 1{table t} TID Lisinopril- hydroCHLORO thiazide 20-12.5 MG Lisinopril- hydroCHLORO thiazide 20-12.5 MG No NovoFine Plus 32G X 4 MM NovoFine Plus 32G X 4 MM No Vital Signs Vital Name Observation Time Observation Value Comments S ource height 2023-09-04 16:15:00 76 [in_i] Commo n [facility] weight 2023-09-04 16:15:00 274.8 [lb_av] Co mmon [facility] temperature 2023-09-04 16:15:00 98.6 [degF] Com mon [facility] bmi 2023-09-04 16:15:00 33.45 kg/m2 Comm on [facility] oximetry 2023-09-04 16:15:00 99 % Commo n [facility] respiratory rate 2023-09-04 16:15:00 18 /min Common [facility] blood pressure systolic 2023-09-04 16:15:00 126 mm[Hg[facility] pressure diastolic 2023-09-04 16:15:00 80 mm[Hg] [facility] height 2023-06-11 14:10:00 76 [in_i] Commo n [facility] weight 2023-06-11 14:10:00 268 [lb_av] Comm on [facility] temperature 2023-06-11 14:10:00 97.6 [degF] Com mon [facility] bmi 2023-06-11 14:10:00 32.62 kg/m2 Comm on [facility] oximetry 2023-06-11 14:10:00 98 % Commo n [facility] [facility] blood pressure systolic 2023-06-11 14:10:00 148 mm[Hg] [facility] blood pressure diastolic 2023-06-11 14:10:00 76 mm[Hg] [facility] height 2023-05-16 15:30:00 76 [in_i] Commo n [facility] weight 2023-05-16 15:30:00 174.6 [lb_av] Co mmon [facility] temperature 2023-05-16 15:30:00 97.7 [degF] Com mon [facility] bmi 2023-05-16 15:30:00 21.25 kg/m2 Comm on [facility] oximetry 2023-05-16 15:30:00 97 % Commo n [facility] respiratory rate 2023-05-16 15:30:00 18 /min Common [facility] blood pressure systolic 2023-05-16 15:30:00 164 mm[Hg] [facility] blood pressure diastolic 2023-05-16 15:30:00 74 mm[Hg] [facility] height 2023-02-06 14:30:00 76 [in_i] Commo n [facility] weight 2023-02-06 14:30:00 276.0 [lb_av] Co mmon [facility] temperature 2023-02-06 14:30:00 97.7 [degF] Com mon [facility] bmi 2023-02-06 14:30:00 33.59 kg/m2 Comm on [facility] oximetry 2023-02-06 14:30:00 97 % Commo n [facility] respiratory rate 2023-02-06 14:30:00 17 /min [facility] blood pressure systolic 2023-02-06 14:30:00 137 mm[Hg] [facility] blood pressure diastolic 2023-02-06 14:30:00 68 mm[Hg] [facility] height 2022-11-06 15:30:00 76 [in_i] Commo n [facility] weight 2022-11-06 15:30:00 281 [lb_av] Comm on [facility] temperature 2022-11-06 15:30:00 97.4 [degF] Com mon [facility] bmi 2022-11-06 15:30:00 34.2 kg/m2 Commo n [facility] oximetry 2022-11-06 15:30:00 94 % Commo n [facility] respiratory rate 2022-11-06 15:30:00 16 /min Common [facility] blood pressure systolic 2022-11-06 15:30:00 138 mm[Hg] [facility] blood pressure diastolic 2022-11-06 15:30:00 70 mm[Hg] [facility] height 2022-11-06 15:30:00 76 [in_i] Commo n [facility] weight 2022-11-06 15:30:00 281 [lb_av] Comm on [facility] temperature 2022-11-06 15:30:00 97.4 [degF] Com mon [facility] bmi 2022-11-06 15:30:00 34.2 kg/m2 Commo n [facility] oximetry 2022-11-06 15:30:00 94 % Commo n [facility] respiratory rate 2022-11-06 15:30:00 16 /min Common [facility] blood pressure systolic 2022-11-06 15:30:00 138 mm[Hg] Common [facility] blood pressure diastolic 2022-11-06 15:30:00 70 mm[Hg] [facility] height 2022-08-09 16:10:00 76 [in_i] Commo n [facility] weight 2022-08-09 16:10:00 285.3 [lb_av] Co mmon [facility] temperature 2022-08-09 16:10:00 96.0 [degF] Com mon [facility] bmi 2022-08-09 16:10:00 34.72 kg/m2 Comm on [facility] oximetry 2022-08-09 16:10:00 97 % Commo n [facility] respiratory rate 2022-08-09 16:10:00 17 /min Common [facility] blood pressure systolic 2022-08-09 16:10:00 129 mm[Hg] Common Spiri t [facility] blood pressure diastolic 2022-08-09 16:10:00 67 mm[Hg] [facility] height 2022-04-18 14:30:00 76 [in_i] Commo n [facility] weight 2022-04-18 14:30:00 284.6 [lb_av] Co mmon [facility] temperature 2022-04-18 14:30:00 97.4 [degF] Com mon [facility] bmi 2022-04-18 14:30:00 34.64 kg/m2 Comm on [facility] oximetry 2022-04-18 14:30:00 97 % Commo n [facility] respiratory rate 2022-04-18 14:30:00 17 /min Common [facility] blood pressure systolic 2022-04-18 14:30:00 138 mm[Hg] [facility] blood pressure diastolic 2022-04-18 14:30:00 72 mm[Hg] Common [facility] height 2022-01-17 15:10:00 76 [in_i] Commo n [facility] weight 2022-01-17 15:10:00 288 [lb_av] Comm on [facility] temperature 2022-01-17 15:10:00 97.6 [degF] Com mon [facility] bmi 2022-01-17 15:10:00 35.05 kg/m2 Comm on [facility] oximetry 2022-01-17 15:10:00 96 % Commo n [facility] respiratory rate 2022-01-17 15:10:00 16 /min Common [facility] blood pressure systolic 2022-01-17 15:10:00 139 mm[Hg] Common Spiri t [facility] blood pressure diastolic 2022-01-17 15:10:00 76 mm[Hg] [facility] height 2022-01-17 15:40:00 76 [in_i] Commo n [facility] weight 2022-01-17 15:40:00 288 [lb_av] Comm on [facility] temperature 2022-01-17 15:40:00 97.6 [degF] Com mon [facility] bmi 2022-01-17 15:40:00 35.05 kg/m2 Comm on [facility] oximetry 2022-01-17 15:40:00 96 % Commo n [facility] respiratory rate 2022-01-17 15:40:00 16 /min Common [facility] blood pressure systolic 2022-01-17 15:40:00 139 mm[Hg] [facility] blood pressure diastolic 2022-01-17 15:40:00 76 mm[Hg] [facility] height 2021-08-23 15:00:00 76 [in_i] Commo n [facility] weight 2021-08-23 15:00:00 293.9 [lb_av] Co [facility] temperature 2021-08-23 15:00:00 97.3 [degF] Com [facility] bmi 2021-08-23 15:00:00 35.77 kg/m2 Comm on [facility] oximetry 2021-08-23 15:00:00 96 % Commo n [facility] respiratory rate 2021-08-23 15:00:00 16 /min [facility] blood pressure systolic 2021-08-23 15:00:00 132 mm[Hg] Common [facility] blood pressure diastolic 2021-08-23 15:00:00 78 mm[Hg] [facility] height 2021-05-24 15:20:00 76 [in_i] Commo n [facility] weight 2021-05-24 15:20:00 298.7 [lb_av] Co mmon [facility] temperature 2021-05-24 15:20:00 97.9 [degF] Com [facility] bmi 2021-05-24 15:20:00 36.35 kg/m2 Comm on [facility] oximetry 2021-05-24 15:20:00 97 % Commo n [facility] respiratory rate 2021-05-24 15:20:00 18 /min [facility] blood pressure systolic 2021-05-24 15:20:00 138 mm[Hg] [facility] blood pressure diastolic 2021-05-24 15:20:00 70 mm[Hg] [facility] Procedures Procedure Date / Time Performed Performing Clinicia n Source PVR 2023-09-04 00:00:00 [facility] PVR 2023-05-16 00:00:00 [facility] Encounters Start Date/Time End Date/Time Encounter Type Admission Type Attending Clinicians Care Facility Care Department Encounter ID Source 2023-09-02 16:01:01 Outpatient [place], [place] STL[facility] STLMLC [id number] [facility] 2023-05-16 18:20:00 Outpatient [place], [place] [facility] STL[facility]C [id number] [facility] 2022-08-08 13:44:01 Outpatient [place], [place] [facility] STL[facility]C [id number] [facility] 2022-04-18 14:19:01 Outpatient [place], [place] STLMLC STLMLC [id number] [facility] 2021-08-23 14:59:01 Outpatient [place], [place] STLMLC STLMLC [id number] [facility] 2021-08-02 12:59:49 Outpatient [place], [place] STLMLC STLMLC [id number] [facility] 2021-08-02 12:46:48 Outpatient [place], [place] STLMLC STLMLC [id number] [facility] 2023-09-04 00:00:00 2023-09-04 00:00:00 OFFICE VISIT ESTAB PT LEVEL 5 STLMLC STLMLC [id number] [facility] 2023-09-02 00:00:00 2023-09-02 00:00:00 (TEL) STLMLC STLMLC [id number] [facility] 2023-06-11 00:00:00 2023-06-11 00:00:00 OFFICE VISIT ESTAB PT LEVEL 4 [facility]LMLC STLMLC [id number] [facility] 2023-06-06 00:00:00 2023-06-06 00:00:00 (TEL) STLMLC STLMLC [id number] [facility] 2023-05-31 00:00:00 2023-05-31 00:00:00 (TEL) STLMLC STLMLC [id number] [facility] 2023-05-16 00:00:00 2023-05-16 00:00:00 OFFICE VISIT NEW PT LEVEL 4 [facility]LMLC STLMLC [id number] [facility] 2023-02-06 00:00:00 2023-02-06 00:00:00 OFFICE VISIT ESTAB PT LEVEL 4 [facility]LMLC STLMLC [id number] [facility] 2022-11-06 00:00:00 2022-11-06 00:00:00 OFFICE VISIT ESTAB PT LEVEL 4 [facility]LMLC STLMLC [id number] [facility] 2022-11-06 00:00:00 2022-11-06 00:00:00 SUB ANNUAL MCR WELLNESS VISIT STLMLC STLMLC [id number] [facility] 2022-08-09 00:00:00 2022-08-09 00:00:00 OFFICE VISIT ESTAB PT LEVEL 4 STLMLC STLMLC [id number] [facility] 2022-04-18 00:00:00 2022-04-18 00:00:00 OFFICE VISIT ESTAB PT LEVEL 4 [facility]LMLC STLMLC [id number] [facility] 2022-01-17 00:00:00 2022-01-17 00:00:00 OFFICE VISIT ESTAB PT LEVEL 4 STLMLC STLMLC [id number] [facility] 2022-01-17 00:00:00 2022-01-17 00:00:00 SUB ANNUAL MCR WELLNESS VISIT STLMLC STLMLC [id number] [facility] 2021-09-06 00:00:00 2021-09-06 00:00:00 (TEL) STLMLC STLMLC [id number] [facility] 2021-08-23 00:00:00 2021-08-23 00:00:00 OFFICE VISIT ESTAB PT LEVEL 4 STLMLC STLMLC [id number] [facility] 2021-05-24 00:00:00 2021-05-24 00:00:00 OFFICE VISIT ESTAB PT LEVEL 4 STLMLC STLMLC [id number] [facility] 2021-02-09 00:00:00 2021-02-09 00:00:00 Outpatient STLMLC STLMLC [id number] [facility] 2020-12-16 00:00:00 2020-12-16 00:00:00 Outpatient STLMLC STLMLC [id number] [facility] 2020-12-08 00:00:00 2020-12-08 00:00:00 Outpatient STLMLC STLMLC [id number] [facility] 2020-11-10 00:00:00 2020-11-10 00:00:00 Outpatient STLMLC STLMLC [id number] [facility] 2020-11-10 00:00:00 2020-11-10 00:00:00 Outpatient STLMLC STLMLC [id number] [facility] 2020-10-26 00:00:00 2020-10-26 00:00:00 Outpatient STLMLC STLMLC [id number] [facility] 2020-10-26 00:00:00 2020-10-26 00:00:00 Outpatient STLMLC STLMLC [id number] [facility] 2020-10-26 00:00:00 2020-10-26 00:00:00 Outpatient STLMLC STLMLC [id number] [facility] 2020-10-20 00:00:00 2020-10-20 00:00:00 Outpatient STLMLC STLMLC [id number] [facility] 2020-10-05 00:00:00 2020-10-05 00:00:00 Outpatient STLMLC STLMLC [id number] [facility] 2020-09-24 12:40:00 2020-09-24 12:40:00 Outpatient [facility] [id number] [facility] 2020-09-03 13:05:00 2020-09-03 13:05:00 Outpatient [facility] [id number] [facility] 2020-05-28 12:38:29 2020-05-28 12:58:29 Laboratory Only Lab, Ad[facility] [id number] [facility] 2020-05-28 12:40:00 2020-05-28 12:40:00 Outpatient [facility] [id number] [facility] Results Test Description Test Time Test Comments Results Result Co mments Source HEMOGLOBIN [id number] 00:00:00* Test Item Value Reference Range Interpretation Comme [facility] HEMOGLOBIN A1c (test code = 4548-4) 6.8 % See_Comment H [Automated ONTRAPORTa [employer]] The system which generated this result transmitted reference range: 4.2-5.6 %. The reference range was not used to interpret this result as normal/abnormal. LIPID PANEL WITH REFLEX DIRECT [id number] 00:00:00* Test Item Value Reference Range Interpretation Comme nts CALC LDL CHOL (test code = 44200-5) 66 MG/DL See_Comment [Automated [employer]ORT[employer]] The system which generated this result transmitted reference range: <100 MG/DL. The reference range was not used to interpret this result as normal/abnormal. CHOLESTEROL (test code = 2093-3) 198 MG/DL See_Comment [Automated [employer]TR[employer]ORT[employer]] The system which generated this result transmitted reference range: <200 MG/DL. The reference range was not used to interpret this result as normal/abnormal. HDL CHOLESTEROL (test code = 2085-9) 119 MG/DL See_Comment [Automated messa ge] The system which generated this result transmitted reference range: >39 MG/DL. The reference range was not used to interpret this result as normal/abnormal. RISK RATIO LDL/HDL (test code = 03076-6) 0.55 RATIO See_Comment [Automated message] The system which generated this result transmitted reference range: <3.55 RATIO. The reference range was not used to interpret this result as normal/abnormal. TRIGLYCERIDES (test code = 2571-8) 46 MG/DL See_Comment [Automated ONTRAPORTa ge] The system which generated this result transmitted reference range: <150 MG/DL. The reference range was not used to interpret this result as normal/abnormal. ALBUMIN/CREATININE RATIO, RANDOM [id number] 00:00:00* Test Item Value Reference Range Interpretation Comme nts ALBUMIN, URINE, RANDOM (test code = 01533-2) 0.9 MG/DL NOT ESTAB MG/DL CALC ALBUMIN/CREAT, RND (test code = 62496-0) 6 MG/G See_Comment [Automated ONTRAPORTa ge] The system which generated this result transmitted reference range: <30 MG/G. The reference range was not used to interpret this result as normal/abnormal. CREATININE, URINE, CONC. (test code = 2161-8) 146.5 MG/DL NOT ESTAB MG/DL COMPREHENSIVE METABOLIC [id number] 00:00:00* Test Item Value Reference Range Interpretation Comme nts ALBUMIN (test code = 1751-7) 4.3 G/DL See_Comment [Automated ONTRAPORTa ge] The system which generated this result transmitted reference range: 3.5-5.2 G/DL. The reference range was not used to interpret this result as normal/abnormal. ALKALINE PHOSPHATASE (test code = 6768-6) 52 U/L See_Comment [Automated message] The system which generated this result transmitted reference range: 40-125 U/L. The reference range was not used to interpret this result as normal/abnormal. BILIRUBIN, TOTAL (test code = 1975-2) 0.4 MG/DL See_Comment [Automated message] The system which generated this result transmitted reference range: <=1.2 MG/DL. The reference range was not used to interpret this result as normal/abnormal. BUN (test code = 3094-0) 14 MG/DL See_Comment [Automated messa ge] The system which generated this result transmitted reference range: 8-23 MG/DL. The reference range was not used to interpret this result as normal/abnormal. CALCIUM (test code = 64640-9) 9.1 MG/DL See_Comment [Automated messa ge] The system which generated this result transmitted reference range: 8.5-10.5 MG/DL. The reference range was not used to interpret this result as normal/abnormal. CALC A/G RATIO (test code = 1759-0) 2.2 RATIO See_Comment [Automated messa ge] The system which generated this result transmitted reference range: 1.0-2.6 RATIO. The reference range was not used to interpret this result as normal/abnormal. CALC BUN/CREAT (test code = 3097-3) 13 RATIO See_Comment [Automated messa ge] The system which generated this result transmitted reference range: 6-28 RATIO. The reference range was not used to interpret this result as normal/abnormal. CALC GLOBULIN (test code = 10706-1) 2.0 G/DL See_Comment [Automated messa ge] The system which generated this result transmitted reference range: 1.9-3.7 G/DL. The reference range was not used to interpret this result as normal/abnormal. CARBON DIOXIDE (test code = 1963-8) 27 MEQ/L See_Comment [Automated messa ge] The system which generated this result transmitted reference range: 19-31 MEQ/L. The reference range was not used to interpret this result as normal/abnormal. CHLORIDE (test code = 2075-0) 106 MEQ/L See_Comment [Automated messa ge] The system which generated this result transmitted reference range: 95-107 MEQ/L. The reference range was not used to interpret this result as normal/abnormal. CREATININE (test code = 2160-0) 1.06 MG/DL See_Comment [Automated messa ge] The system which generated this result transmitted reference range: 0.80-1.40 MG/DL. The reference range was not used to interpret this result as normal/abnormal. eGFR (2020 CKD-EPI) (test code = 05571-5) 73 ML/MIN/1.73 See_Comment [Automated messa ge] The system which generated this result transmitted reference range: >60 ML/MIN/1.73. The reference range was not used to interpret this result as normal/abnormal. GLUCOSE (test code = 1558-6) 189 MG/DL See_Comment H [Automated messa ge] The system which generated this result transmitted reference range: 70-99 MG/DL. The reference range was not used to interpret this result as normal/abnormal. POTASSIUM (test code = 2823-3) 4.1 MEQ/L See_Comment [Automated messa ge] The system which generated this result transmitted reference range: 3.5-5.4 MEQ/L. The reference range was not used to interpret this result as normal/abnormal. PROTEIN, TOTAL (test code = 2885-2) 6.3 G/DL See_Comment [Automated messa ge] The system which generated this result transmitted reference range: 6.1-8.3 G/DL. The reference range was not used to interpret this result as normal/abnormal. AST (test code = 1920-8) 15 U/L See_Comment [Automated messa ge] The system which generated this result transmitted reference range: 9-50 U/L. The reference range was not used to interpret this result as normal/abnormal. ALT (test code = 1742-6) 15 U/L See_Comment [Automated messa ge] The system which generated this result transmitted reference range: 5-50 U/L. The reference range was not used to interpret this result as normal/abnormal. SODIUM (test code = 2951-2) 143 MEQ/L See_Comment [Automated messa ge] The system which generated this result transmitted reference range: 133-146 MEQ/L. The reference range was not used to interpret this result as normal/abnormal. CBC W/AUTO [id number] 00:00:00* Test Item Value Reference Range Interpretation Comme nts NUCLEATED RBCS (test code = 94841-7) 0.0 /100 WBC'S See_Comment [Automated messa ge] The system which generated this result transmitted reference range: 0.0 /100 WBC'S. The reference range was not used to interpret this result as normal/abnormal. ABSOLUTE EOSINOPHILS (test code = 16755-5) 0.37 K/UL See_Comment [Automated messa ge] The system which generated this result transmitted reference range: 0.00-0.50 K/UL. The reference range was not used to interpret this result as normal/abnormal. ABSOLUTE LYMPHOCYTES (test code = 99891-8) 1.71 K/UL See_Comment [Automated messa ge] The system which generated this result transmitted reference range: 1.00-4.00 K/UL. The reference range was not used to interpret this result as normal/abnormal. ABSOLUTE MONOCYTES (test code = 22144-4) 0.40 K/UL See_Comment [Automated messa ge] The system which generated this result transmitted reference range: 0.20-1.00 K/UL. The reference range was not used to interpret this result as normal/abnormal. ABSOLUTE NEUTROPHILS (test code = 86609-7) 2.48 K/UL See_Comment [Automated messa ge] The system which generated this result transmitted reference range: 1.50-7.50 K/UL. The reference range was not used to interpret this result as normal/abnormal. BASOPHILS (test code = 05310-2) 0.4 % EOSINOPHILS (test code = 07389-1) 7.4 % HEMATOCRIT (test code = 10202-8) 37.9 % See_Comment L [Automated messa ge] The system which generated this result transmitted reference range: 40.0-51.0 %. The reference range was not used to interpret this result as normal/abnormal. HEMOGLOBIN (test code = 718-7) 13.2 G/DL See_Comment L [Automated messa ge] The system which generated this result transmitted reference range: 13.5-17.0 G/DL. The reference range was not used to interpret this result as normal/abnormal. LYMPHOCYTES (test code = 59511-8) 34.3 % MCH (test code = 57064-2) 32.6 PG See_Comment [Automated messa ge] The system which generated this result transmitted reference range: 25.0-33.0 PG. The reference range was not used to interpret this result as normal/abnormal. MCHC (test code = 30328-0) 34.8 G/DL See_Comment [Automated messa ge] The system which generated this result transmitted reference range: 31.0-36.0 G/DL. The reference range was not used to interpret this result as normal/abnormal. MCV (test code = 12721-5) 93.6 fL See_Comment [Automated messa ge] The system which generated this result transmitted reference range: 80.0-99.0 fL. The reference range was not used to interpret this result as normal/abnormal. MONOCYTES (test code = 85101-5) 8.0 % NEUTROPHILS (test code = 60626-8) 49.7 % PLATELET COUNT (test code = 86498-2) 198 K/UL See_Comment [Automated messa ge] The system which generated this result transmitted reference range: 130-400 K/UL. The reference range was not used to interpret this result as normal/abnormal. RBC (test code = 84819-9) 4.05 M/UL See_Comment L [Automated messa ge] The system which generated this result transmitted reference range: 4.50-6.10 M/UL. The reference range was not used to interpret this result as normal/abnormal. RDW (test code = 36134-1) 12.4 % See_Comment [Automated messa ge] The system which generated this result transmitted reference range: 11.5-15.0 %. The reference range was not used to interpret this result as normal/abnormal. WBC (test code = 78898-3) 5.0 K/UL See_Comment [Automated messa ge] The system which generated this result transmitted reference range: 3.5-11.0 K/UL. The reference range was not used to interpret this result as normal/abnormal. PSA W/REFLEX TO FREE [id number] 00:00:00* Test Item Value Reference Range Interpretation Comme [facility] PROSTATE SPECIFIC AG (test code = 90462-1) 4.33 NG/ML See_Comment H [Automated messa ge] The system which generated this result transmitted reference range: <=4.00 NG/ML. The reference range was not used to interpret this result as normal/abnormal. HEMOGLOBIN [id number] 00:00:00* Test Item Value Reference Range Interpretation Comme nts HEMOGLOBIN A1c (test code = 4548-4) 6.7 % See_Comment H [Automated messa ge] The system which generated this result transmitted reference range: 4.2-5.6 %. The reference range was not used to interpret this result as normal/abnormal. TSH REFLEX TO FREE [id number] 00:00:00* Test Item Value Reference Range Interpretation Comme nts TSH REFLEX TO FREE T4 (test code = 00723-0) 1.400 UIU/ML See_Comment [Automated ONTRAPORTa ge] The system which generated this result transmitted reference range: 0.400-4.100 UIU/ML. The reference range was not used to interpret this result as normal/abnormal. URINALYSIS (CULTURE IF INDICATED)2023-01-30 00:00:00* Test Item Value Reference Range Interpretation Comme nts APPEARANCE (test code = 5767-9) CLEAR CLEAR BILIRUBIN (test code = 5770-3) NEGATIVE NEGATIVE COLOR (test code = 5778-6) YELLOW YELLOW-STRAW GLUCOSE (test code = 5792-7) NEGATIVE NEGATIVE KETONES (test code = 5797-6) NEGATIVE NEGATIVE LEUKOCYTE ESTERASE (test code = 5799-2) NEGATIVE NEGATIVE NITRITE (test code = 5802-4) NEGATIVE NEGATIVE OCCULT BLOOD (test code = 93018-4) NEGATIVE NEGATIVE pH (test code = 5803-2) 5.5 5.0-9.0 PROTEIN (test code = 97264-4) NEGATIVE NEGATIVE SPECIFIC GRAVITY (test code = 5811-5) 1.014 1.005-1.035 UROBILINOGEN (test code = 73406-7) 0.2 MG/DL See_Comment [Automated ONTRAPORTa [employer]] The system which generated this result transmitted reference range: <=2.0 MG/DL. The reference range was not used to interpret this result as normal/abnormal. LIPID PANEL WITH REFLEX DIRECT [id number] 00:00:00* Test Item Value Reference Range Interpretation Comme nts CALC LDL CHOL (test code = 96681-7) 68 MG/DL See_Comment [Automated ONTRAPORTa ge] The system which generated this result transmitted reference range: <100 MG/DL. The reference range was not used to interpret this result as normal/abnormal. CHOLESTEROL (test code = 2093-3) 174 MG/DL See_Comment [Automated ONTRAPORTa ge] The system which generated this result transmitted reference range: <200 MG/DL. The reference range was not used to interpret this result as normal/abnormal. HDL CHOLESTEROL (test code = 2085-9) 93 MG/DL See_Comment [Automated ONTRAPORTa ge] The system which generated this result transmitted reference range: >39 MG/DL. The reference range was not used to interpret this result as normal/abnormal. RISK RATIO LDL/HDL (test code = 06635-2) 0.73 RATIO See_Comment [Automated message] The system which generated this result transmitted reference range: <3.55 RATIO. The reference range was not used to interpret this result as normal/abnormal. TRIGLYCERIDES (test code = 2571-8) 46 MG/DL See_Comment [Automated ONTRAPORTa ge] The system which generated this result transmitted reference range: <150 MG/DL. The reference range was not used to interpret this result as normal/abnormal. ALBUMIN/CREATININE RATIO, RANDOM [id number] 00:00:00* Test Item Value Reference Range Interpretation Comme nts ALBUMIN, URINE, RANDOM (test code = 80719-1) 0.3 MG/DL NOT ESTAB MG/DL CALC ALBUMIN/CREAT, RND (test code = 06072-9) 4 MG/G See_Comment [Automated ONTRAPORTa ge] The system which generated this result transmitted reference range: <30 MG/G. The reference range was not used to interpret this result as normal/abnormal. CREATININE, URINE, CONC. (test code = 2161-8) 83.6 MG/DL NOT ESTAB MG/DL COMPREHENSIVE METABOLIC [id number] 00:00:00* Test Item Value Reference Range Interpretation Comme nts ALBUMIN (test code = 1751-7) 4.5 G/DL See_Comment [Automated ONTRAPORTa ge] The system which generated this result transmitted reference range: 3.5-5.2 G/DL. The reference range was not used to interpret this result as normal/abnormal. ALKALINE PHOSPHATASE (test code = 6768-6) 54 U/L See_Comment [Automated message] The system which generated this result transmitted reference range: 40-125 U/L. The reference range was not used to interpret this result as normal/abnormal. BILIRUBIN, TOTAL (test code = 1975-2) 0.3 MG/DL See_Comment [Automated message] The system which generated this result transmitted reference range: <=1.2 MG/DL. The reference range was not used to interpret this result as normal/abnormal. BUN (test code = 3094-0) 15 MG/DL See_Comment [Automated messa ge] The system which generated this result transmitted reference range: 8-23 MG/DL. The reference range was not used to interpret this result as normal/abnormal. CALCIUM (test code = 43626-1) 9.1 MG/DL See_Comment [Automated messa ge] The system which generated this result transmitted reference range: 8.5-10.5 MG/DL. The reference range was not used to interpret this result as normal/abnormal. CALC A/G RATIO (test code = 1759-0) 2.4 RATIO See_Comment [Automated messa ge] The system which generated this result transmitted reference range: 1.0-2.6 RATIO. The reference range was not used to interpret this result as normal/abnormal. CALC BUN/CREAT (test code = 3097-3) 14 RATIO See_Comment [Automated messa ge] The system which generated this result transmitted reference range: 6-28 RATIO. The reference range was not used to interpret this result as normal/abnormal. CALC GLOBULIN (test code = 05526-9) 1.9 G/DL See_Comment [Automated messa ge] The system which generated this result transmitted reference range: 1.9-3.7 G/DL. The reference range was not used to interpret this result as normal/abnormal. CARBON DIOXIDE (test code = 1963-8) 25 MEQ/L See_Comment [Automated messa ge] The system which generated this result transmitted reference range: 19-31 MEQ/L. The reference range was not used to interpret this result as normal/abnormal. CHLORIDE (test code = 2075-0) 106 MEQ/L See_Comment [Automated messa ge] The system which generated this result transmitted reference range: 95-107 MEQ/L. The reference range was not used to interpret this result as normal/abnormal. CREATININE (test code = 2160-0) 1.10 MG/DL See_Comment [Automated messa ge] The system which generated this result transmitted reference range: 0.80-1.40 MG/DL. The reference range was not used to interpret this result as normal/abnormal. eGFR (2020 CKD-EPI) (test code = 45836-4) 70 ML/MIN/1.73 See_Comment [Automated messa ge] The system which generated this result transmitted reference range: >60 ML/MIN/1.73. The reference range was not used to interpret this result as normal/abnormal. GLUCOSE (test code = 1558-6) 122 MG/DL See_Comment H [Automated messa ge] The system which generated this result transmitted reference range: 70-99 MG/DL. The reference range was not used to interpret this result as normal/abnormal. POTASSIUM (test code = 2823-3) 4.3 MEQ/L See_Comment [Automated messa ge] The system which generated this result transmitted reference range: 3.5-5.4 MEQ/L. The reference range was not used to interpret this result as normal/abnormal. PROTEIN, TOTAL (test code = 2885-2) 6.4 G/DL See_Comment [Automated messa ge] The system which generated this result transmitted reference range: 6.1-8.3 G/DL. The reference range was not used to interpret this result as normal/abnormal. AST (test code = 1920-8) 14 U/L See_Comment [Automated messa ge] The system which generated this result transmitted reference range: 9-50 U/L. The reference range was not used to interpret this result as normal/abnormal. ALT (test code = 1742-6) 12 U/L See_Comment [Automated messa ge] The system which generated this result transmitted reference range: 5-50 U/L. The reference range was not used to interpret this result as normal/abnormal. SODIUM (test code = 2951-2) 143 MEQ/L See_Comment [Automated messa ge] The system which generated this result transmitted reference range: 133-146 MEQ/L. The reference range was not used to interpret this result as normal/abnormal.
[2023-09-13 12:06] LABS: Absolute Basophils 0.1 K/uL (0-0.5); Absolute Eosinophils 0.1 K/uL (0-0.5); Absolute Lymphocytes (CBC) 1.5 K/uL (0.7-4.9); Absolute Monocytes 0.4 K/uL (0.1-1.3); Absolute Neutrophil 3.8 K/uL (1.8-8.0); Basophils % 1.1 % (0-1.3); Eosinophils % 2.2 % (0-4.4); Hematocrit 36.7 % (39.6-49.0); Hemoglobin 12.2 g/dL (13.6-17.9); Lymphocytes % 25.6 % (15.3-44.8); MCH 31.7 pg (27.0-35.0); MCHC 33.3 g/dL (32.0-36.0); MPV 8.6 fL (7.6-11.3); Monocytes % 6.9 % (3.3-12.3); Neutrophils % 64.2 % (41.7-73.7); Nucleated Red Blood Cells % 0.1 % (0-0); Platelets 230 thou/uL (152-406); RBC Red Blood Cell Count 3.86 M/uL (4.33-5.43); Red Cell Distribution Width 14.3 % (12.1-15.2)
[2023-09-13 12:10] LABS: PT Prothrombin Time 12.8 SECONDS (9.5-12.5); Protime INR 1.17
[2023-09-13 12:26] LABS: Anion Gap 7.9 mEq/L (5.0-15.0); Potassium 3.9 mEq/L (3.5-5.1)
--- NOTE | 2023-09-13 13:43 | RAD REPORT ---
EXAM DESCRIPTION: RAD - Chest Pa And Lat (2 Views) - 09/13/2023 1:33 pm CLINICAL HISTORY: shortness of breath;Cough COMPARISON: Chest Pa And Lat (2 Views) dated 06/20/2018; Abdomen 1 View (KUB) dated 06/17/2018 FINDINGS: Lines: None. Lungs: Interstitial pulmonary edema. Pleural: Small pleural effusions suspected . Cardiac: Cardiomegaly. Mediastinum: Within normal limits. Bones: No acute fractures. Other: None IMPRESSION: Suspect mild interstitial edema and small pleural effusions. Pneumonia less likely.
--- NOTE | 2023-09-13 13:46 | EDPHYS ---
Physician Documentation [facility] Name: Bernard Smith Age: 77 yrs Sex: Male : 1945 Arrival Date: 09/13/2023 Time: 11:12 Bed 6 Private MD: J[facility] ED Physician Lorenzo Montgomery HPI: 09/12 11:44 This 77 yrs old Black Male presents to ER via Unassigned with complaints of Shortness ms3 Of Breath. 11:44 77-year-old male with past medical history of hypertension, hyperlipidemia, diabetes ms3 presents to the emergency department for shortness of breath that has been ongoing for 2 weeks. Patient denies any alleviating or inciting factors. Patient states he was seen at [facility] and was diagnosed with acute bronchitis, hypoxemia, acute cough. Patient was given a prednisone and cefdinir. Patient had a chest x-ray performed on Saturday and was given albuterol. Patient denies pedal edema, pain, nausea, vomiting. Patient endorses fatigue.. Historical: - Allergies: 11:50 No Known Allergies; aa5 - PMHx: 11:50 Diabetes - NIDDM; Hypertension; Hypercholesterolemia; aa5 - Immunization history:: Adult Immunizations unknown. - Social history:: Smoking status: Patient/guardian denies using tobacco, but has a distant history of tobacco abuse. ROS: 11:44 Neck: Negative for injury, pain, and swelling, Cardiovascular: Negative for chest pain, ms3 and palpitations. Abdomen/GI: Negative for abdominal pain, nausea, vomiting, diarrhea, and constipation, MS/Extremity: Negative for injury and deformity, Skin: Negative for injury, rash, and discoloration, Neuro: Negative for headache, weakness, numbness, tingling. 11:44 Constitutional: Positive for fatigue, 11:44 Respiratory: Positive for shortness of breath, Exam: 11:44 Constitutional: This is a well developed, well nourished patient who is awake, alert, ms3 and in no acute distress. Head/Face: Normocephalic, atraumatic. Neck: Trachea midline, no cervical lymphadenopathy. Supple, full range of motion without nuchal rigidity, or vertebral point tenderness. No Meningismus. Chest/axilla: Normal chest wall appearance and motion. Nontender with no deformity. Cardiovascular: Regular rate and rhythm with a normal S1 and S2. No gallops, murmurs, or rubs. Normal PMI, no JVD. No pulse deficits. Respiratory: Lungs have equal breath sounds bilaterally, clear to auscultation and percussion. No rales, rhonchi or wheezes noted. No increased work of breathing, no retractions or nasal flaring. Abdomen/GI: Soft, non-tender, with normal bowel sounds. No distension or tympany. No guarding or rebound. No evidence of tenderness throughout. Skin: Warm, dry with normal turgor. Normal color with no rashes, no lesions, and no evidence of cellulitis. MS/ Extremity: Pulses equal, no cyanosis. Neurovascular intact. Full, normal range of motion. 14:01 ECG was reviewed by the Attending Physician. ms3 Vital Signs: 11:39 BP 172 / 94; Pulse 72; Resp 20 S; Temp 97.8(TE); Pulse Ox 98% on R/A; Weight 122.47 kg aa5 (R); Height 6 ft. 4 in. (R); 12:43 BP 158 / 83; Pulse 74; Resp 18; Pulse Ox 95% on R/A; mb9 13:56 BP 168 / 106; Pulse 73; Resp 18; Temp 97.9; Pulse Ox 97% on R/A; Pain 0/10; mb9 14:39 BP 160 / 88; Pulse 74; Resp 18; Pulse Ox 96% on R/A; mb9 11:39 Body Mass Index 32.87 (122.47 kg, 193.04 cm) aa5 13:56 Pain Scale: Adult mb9 MDM: 11:43 Patient medically screened. ms3 11:44 Differential diagnosis: Myocardial Infarction pneumonia, pulmonary edema. ms3 13:46 Data reviewed: vital signs, nurses notes, lab test result(s), EKG, radiologic studies, ms3 and as a result, I will admit patient. Consideration of Admission/Observation Patient was admitted/placed on observation. Management of patient was discussed with the following: Hospitalist: Dr Dorsey. I considered the following discharge prescriptions or medication management in the emergency department Medications were administered in the Emergency Department. See MAR. Independent interpretation of the following test(s) in the Emergency Department EKG: See my EKG interpretation above X-Ray: My interpretation is CXR image reviewed by me shows bilateral pleural effusions with pulmonary edema. Care significantly affected by the following Social Determinants of Health: Poor access to healthcare and/or lack of insurance. Counseling: I had a detailed discussion with the patient and/or guardian regarding the historical points, exam findings, and any diagnostic results supporting the discharge/admit diagnosis, lab results, radiology results, the need for further work-up and treatment in the hospital. ED course: Case discussed with Dr. Braxton and he accepts patient. Discussed plan for admission with patient and he understands and agrees with plan. 09/12 11:44 Order name: Basic Metabolic Panel; Complete Time: 12:38 ms3 09/12 11:44 Order name: CBC with Diff; Complete Time: 12:38 ms3 09/12 11:44 Order name: Magnesium; Complete Time: 12:38 ms3 09/12 11:44 Order name: NT PRO-BNP; Complete Time: 12:38 ms3 09/12 11:44 Order name: PT-INR; Complete Time: 12:38 ms3 09/12 11:44 Order name: Troponin HS; Complete Time: 12:38 ms3 09/12 14:18 Order name: CBC with Automated Diff EDMS 09/12 14:18 Order name: CBC with Automated Diff EDMS 09/12 14:18 Order name: Comprehensive Metabolic Panel EDMS 09/12 14:18 Order name: Comprehensive Metabolic Panel EDMS 09/12 14:18 Order name: Lipid Profile EDMS 09/12 14:18 Order name: Lipid Profile EDMS 09/12 14:18 Order name: Magnesium EDMS 09/12 14:18 Order name: Magnesium EDMS 09/12 14:18 Order name: NT PRO-BNP EDMS 09/12 14:18 Order name: NT PRO-BNP EDMS 09/12 14:18 Order name: Troponin High Sensitivity EDMS 09/12 14:18 Order name: Troponin High Sensitivity EDMS 09/12 14:18 Order name: Troponin High Sensitivity EDMS 09/12 11:44 Order name: Chest Pa And Lat (2 Views) XRAY; Complete Time: 13:45 ms3 09/12 13:55 Order name: Echo with Doppler EDMS 09/12 11:44 Order name: EKG; Complete Time: 11:45 ms3 09/12 14:18 Order name: CONS Physician Consult EDMS 09/12 11:44 Order name: Cardiac monitoring; Complete Time: 11:47 ms3 09/12 11:44 Order name: EKG - Nurse/Tech; Complete Time: 12:01 ms3 09/12 11:44 Order name: IV Saline Lock; Complete Time: 12:01 ms3 09/12 11:44 Order name: Labs collected and sent; Complete Time: 12:01 ms3 09/12 11:44 Order name: O2 Per Protocol; Complete Time: 11:47 ms3 09/12 11:44 Order name: O2 Sat Monitoring; Complete Time: 11:47 ms3 EC:01 Rate is 76 beats/min. Rhythm is irregularly irregular. QRS [place] is Normal. QRS interval ms3 is normal. Clinical impression: Atrial Fibrillation. Interpreted by me. Reviewed by me. Administered Medications: 13:55 Drug: Furosemide IVP 40 mg IVP once; give over 2 minutes Route: IVP; Site: right mb9 forearm; 14:25 Follow up: Response: No adverse reaction mb9 Disposition Summary: 09/13/23 13:46 Hospitalization Ordered Notes: Hospitalization Status: Inpatient Admission ms3 Provider: Ofelia Dorsey ms3 Location: Telemetry/MedSurg (Inpatient) ms3 Condition: Stable ms3 Problem: new ms3 Symptoms: are unchanged ms3 Bed/Room Type: Standard ms3 Room Assignment: [facility](09/13/23 14:35) eb Diagnosis - Heart failure, unspecified ms3 - Unspecified atrial fibrillation ms3 - Acute pulmonary edema ms3 Forms: - Medication Reconciliation Form ms3 - SBAR form ms3 - Leadership Thank You Letter ms3 Signatures: Dispatcher [employer] EDAdwoa Mejia, RN RN aa5 Kirsten Bowser Marcus, DO DO ms3 Fatmata Ruiz RN RN mb9 Corrections: (The following items were deleted from the chart) 14:35 13:46 ms3 eb
--- NOTE | 2023-09-13 13:46 | ER ---
Nurse's Notes [facility] Name: Bernard Smith Age: 77 yrs Sex: Male : 1945 Arrival Date: 09/13/2023 Time: 11:12 Bed 6 Private MD: Calixto Greene Diagnosis: Heart failure, unspecified;Unspecified atrial fibrillation;Acute pulmonary edema Presentation: 09/12 11:39 Chief complaint: Patient states: SOB x 2 weeks ago, worse on exertion. Pt reports being [facility] seen at urgent care recently and prescribed prednisone, cefdinir, and albuterol. 11:39 Coronavirus screen: shortness of breath. Ebola Screen: Patient denies travel to an [facility] Ebola-affected area in the 21 days before illness onset. Initial Sepsis Screen: Does the patient meet any 2 criteria? No. Patient's initial sepsis screen is negative. Does the patient have a suspected source of infection? No. Patient's initial sepsis screen is negative. Risk Assessment: Do you want to hurt yourself or someone else? Patient reports no desire to harm self or others. Onset of symptoms was 2023. 11:39 Method Of Arrival: Ambulatory aa5 11:39 Acuity: ANDREY 3 aa5 Triage Assessment: 12:44 General: Appears in no apparent distress. Behavior is calm, cooperative. Respiratory: mb9 Onset: The symptoms/episode began/occurred 2 wks ago, the patient has mild shortness of breath. Respiratory: Airway is patent Respiratory effort is even, unlabored, Respiratory pattern is regular, symmetrical. Historical: - Allergies: 11:50 No Known Allergies; aa5 - PMHx: 11:50 Diabetes - NIDDM; Hypertension; Hypercholesterolemia; aa5 - Immunization history:: Adult Immunizations unknown. - Social history:: Smoking status: Patient/guardian denies using tobacco, but has a distant history of tobacco abuse. Screenin:45 [facility] ED Fall Risk Assessment (Adult) History of falling in the last 3 months, mb9 including since admission No falls in past 3 months (0 pts) Confusion or Disorientation No (0 pts) Intoxicated or Sedated No (0 pts) Impaired Gait No (0 pts) Mobility Assist Device Used No (0 pt) Altered Elimination No (0 pt) Score/Fall Risk Level 0 - 2 = Low Risk Oriented to surroundings, Maintained a safe environment, Educated pt \T\ family on fall prevention, incl call for assistance when getting out of bed. Abuse screen: Denies threats or abuse. Nutritional screening: No deficits noted. Tuberculosis screening: No symptoms or risk factors identified. Assessment: 12:01 General: Appears in no apparent distress. Behavior is calm, cooperative. Pain: Denies mb9 pain. Neuro: Mace Agitation-Sedation Scale (RASS): 0 - Alert and Calm Level of Consciousness is awake, alert, obeys commands, Oriented to person, place, time, situation, Appropriate for age. Cardiovascular: Heart tones S1 S2 present Patient's skin is warm and dry. Rhythm is atrial fibrillation. Respiratory: Reports shortness of breath Airway is patent Respiratory effort is even, unlabored, Respiratory pattern is regular, symmetrical, Breath sounds are clear bilaterally. GI: Abdomen is round non-distended, Bowel sounds present X 4 quads. Abd is soft and non tender X 4 quads. : No signs and/or symptoms were reported regarding the genitourinary system. EENT: No signs and/or symptoms were reported regarding the EENT system. Derm: Skin is pink, warm \T\ dry. Musculoskeletal: Range of motion: intact in all extremities. 13:19 Reassessment: No changes from previously documented assessment. Patient and/or family mb9 updated on plan of care and expected duration. Pain level reassessed. Patient is alert, oriented x 3, equal unlabored respirations, skin warm/dry/pink. 14:25 Reassessment: No changes from previously documented assessment. Patient and/or family mb9 updated on plan of care and expected duration. Pain level reassessed. Patient is alert, oriented x 3, equal unlabored respirations, skin warm/dry/pink. Vital Signs: 11:39 BP 172 / 94; Pulse 72; Resp 20 S; Temp 97.8(TE); Pulse Ox 98% on R/A; Weight 122.47 kg aa5 (R); Height 6 ft. 4 in. (R); 12:43 BP 158 / 83; Pulse 74; Resp 18; Pulse Ox 95% on R/A; mb9 13:56 BP 168 / 106; Pulse 73; Resp 18; Temp 97.9; Pulse Ox 97% on R/A; Pain 0/10; mb9 14:39 BP 160 / 88; Pulse 74; Resp 18; Pulse Ox 96% on R/A; mb9 11:39 Body Mass Index 32.87 (122.47 kg, 193.04 cm) aa5 13:56 Pain Scale: Adult mb9 ED Course: 11:13 Patient arrived in ED. rg4 11:13 Calixto Greene DO is Private Physician. rg4 11:14 Lorenzo Montgomery DO is Attending Physician. ms3 11:39 Fatmata Ruiz RN is Primary Nurse. mb9 11:39 Arm band placed on. mb9 11:39 Patient placed in an exam room, on a stretcher. aa5 11:46 Placed in gown. Bed in low position. Call light in reach. Side rails up X 1. Client mb9 placed on continuous cardiac and pulse oximetry monitoring. NIBP monitoring applied. lunchroom monitor on. Door closed. Noise minimized. Warm blanket given. 11:51 Triage completed. aa5 11:55 Inserted saline lock: 20 gauge in right forearm, using aseptic technique. mb9 11:55 EKG done, by ED staff, reviewed by Lorenzo Montgomery DO. mb9 12:01 Basic Metabolic Panel Sent. mb9 12:01 CBC with Diff Sent. mb9 12:01 Magnesium Sent. mb9 12:01 NT PRO-BNP Sent. mb9 12:01 PT-INR Sent. mb9 12:01 Troponin HS Sent. mb9 12:02 No provider procedures requiring assistance completed. Patient maintains SpO2 mb9 saturation greater than 95% on room air. 12:03 Provided Education on: hit the call light . Pillow given. mb9 13:15 Assisted with urinal. mb9 13:[address] via wheelchair. mb9 13:34 Chest Pa And Lat (2 Views) XRAY In Process Unspecified. EDMS 13:35 Patient moved back from radiology. mb9 13:42 Patient admitted, IV remains in place. mb9 13:45 Ofelia Dorsey MD is Hospitalizing Provider. ms3 Administered Medications: 13:55 Drug: Furosemide IVP 40 mg IVP once; give over 2 minutes Route: IVP; Site: right mb9 forearm; 14:25 Follow up: Response: No adverse reaction mb9 Medication: 11:45 VIS not applicable for this client. mb9 Outcome: 13:46 Decision to Hospitalize by Provider. ms3 14:43 Admitted to Med/surg via wheelchair, room 202, with chart, Report called to iman Verdugo RN 14:43 Condition: stable 14:43 Instructed on the need for admit, 14:46 Patient left the ED. iman Signatures: Dispatcher [employer] EDAdwoa Mejia, RN RN wanda5 Betsy Kim rg4 Lorenzo Montgomery, DO ms3 Fatmata uRiz RN RN iman Corrections: (The following items were deleted from the chart) 13:34 13:[address] via wheelchair. iman valerio
[2023-09-13] MEDS ORDERED: FUROSEMIDE 40 MG/4 ML VIAL ONE (13:50)
[2023-09-13] MEDS ORDERED: ACETAMINOPHEN 500 MG TAB PO PRN (14:12)
[2023-09-13] MEDS ORDERED: ONDANSETRON 4 MG/2 ML VIAL IV PRN (14:12)
--- NOTE | 2023-09-13 14:22 | P.HP ---
Certification for Inpatient Patient admitted to: Observation With expected LOS: <2 Midnights Patient will require the following post-hospital care: None Practitioner: I am a practitioner with admitting privileges, knowledge of patient current condition, hospital course, and medical plan of care. Services: Services provided to patient in accordance with Admission requirements found in Title 42 Section 412.3 of the Code of Federal Regulations Patient History Date of Service: 09/13/23 Reason for admission: Shortness of breath History of Present Illness: Patient is a 77-year-old gentleman with a history of atrial fibrillation. Patient states he has been short of breath for the last few days. He was treated for bronchitis a week ago. His respiratory status has not improved so he decided to come into the emergency room for further evaluation. In the emergency room patient was in atrial fibrillation with rapid ventricular response. Patient also was short of breath, and patient was found to have atrial fibrillation. Patient was hypotensive. Blood pressure was 170s over 110. Decision was made to admit the patient to the hospital for further evaluation. Patient was anxious to get home. He stated he was feeling better. - Past Medical/Surgical History -: Atrial fibrillation Past Surgical History: Patient denies surgical history - Family History Father Family History: Reviewed- Non-Contributory - Social History Smoking Status: Former smoker Alcohol use: No CD- Drugs: No Review of Systems 10-point ROS is otherwise unremarkable Physical Examination - Vital Signs Temperature: 98 F (Reviewed) Blood Pressure: 170/110 Pulse: 90 Respirations: 18 Pulse Ox (%): 95 - Physical Exam General: Alert, In no apparent distress, Oriented x3 HEENT: Atraumatic, PERRLA, Mucous membr. moist/pink, EOMI, Sclerae nonicteric Neck: Supple, 2+ carotid pulse no bruit, No LAD, Without JVD or thyroid abnormality Respiratory: Diminished, Crackles/rales Cardiovascular: Irregular heart rate/rhythm, Systolic murmur Gastrointestinal: Normal bowel sounds, Soft and benign, Non-distended, No tenderness Musculoskeletal: No clubbing, No tenderness, Swelling Integumentary: No rashes Neurological: Normal speech, Normal strength at 5/5 x4 extr, Normal tone, Sensation intact, Cranial nerves 3-12 intact, Normal affect Lymphatics: No axilla or inguinal lymphadenopathy - Studies Laboratory Data (last 24 hrs) 09/13/23 09/13/23 09/13/23 11:58 11:58 11:58 WBC 5.90 Hgb 12.2 L Hct 36.7 L Plt Count 230 PT 12.8 H INR 1.17 Sodium 141 Potassium 3.9 BUN 21 H Creatinine 1.10 Glucose 105 Magnesium 2.0 Assessment & Plan - Problems (Diagnosis) (1) Acute CHF (congestive heart failure) Current Visit: Yes Status: Acute (2) Atrial fibrillation Current Visit: Yes Status: Acute (3) Uncontrolled hypertension Current Visit: Yes Status: Acute - Plan PLAN: 1. Echocardiogram 2. Continue with cardiac meds 3. Out of bed and ambulate 4. Cardiology consultation 5. Aggressive diuresis 6. Strict I's and O's 7. Daily weights 8. Education regarding diet and treatment of congestive heart failure Discharge Plan: Home Plan to discharge in: 24 Hours - Advance Directives Does patient have a Living Will: No Does patient have a Durable POA for Healthcare: No - Code Status/Comfort Care Code Status Assessed: Yes Code Status: Full Code Critical Care: No Time Spent Managing PTS Care (In Minutes): 45
[2023-09-13] MEDS: ENOXAPARIN 40 MG/0.4 ML SQ SCH (15:10)
[2023-09-13] MEDS: FUROSEMIDE 40 MG/4 ML VIAL IV SCH (16:17)
[2023-09-13] MEDS: METOPROLOL TAR 50 MG TAB PO SCH (20:58)
[2023-09-14] MEDS ORDERED: INSULN SQ SCH (05:45)
[2023-09-14] MEDS ORDERED: INSULIN DEGLUDEC 100 UNIT/ML SQ SCH (05:45)
[2023-09-14 07:11] LABS: Absolute Basophils 0.1 K/uL (0-0.5); Absolute Eosinophils 0.2 K/uL (0-0.5); Absolute Lymphocytes (CBC) 1.8 K/uL (0.7-4.9); Absolute Monocytes 0.6 K/uL (0.1-1.3); Basophils % 1.6 % (0-1.3); Eosinophils % 4.1 % (0-4.4); Hematocrit 39.3 % (39.6-49.0); Hemoglobin 13.1 g/dL (13.6-17.9); Lymphocytes % 32.1 % (15.3-44.8); MCH 31.5 pg (27.0-35.0); MCHC 33.3 g/dL (32.0-36.0); MCV 94.7 fL (80-100); MPV 8.8 fL (7.6-11.3); Monocytes % 9.9 % (3.3-12.3); Neutrophils % 52.3 % (41.7-73.7); Nucleated Red Blood Cells % 0.1 % (0-0); Platelets 258 thou/uL (152-406); RBC Red Blood Cell Count 4.15 M/uL (4.33-5.43); Red Cell Distribution Width 14.3 % (12.1-15.2)
--- NOTE | 2023-09-14 07:36 | P.PN ---
Subjective Date of Service: 09/14/23 Chief Complaint: Shortness of breath Presented with shortness of breath, new onset A-fib Will start sotalol monitor EKG, prolonged QT - Physical Exam General: Alert, In no apparent distress, Oriented x3 HEENT: Atraumatic, PERRLA, Mucous membr. moist/pink, EOMI, Sclerae nonicteric Neck: Supple, 2+ carotid pulse no bruit, No LAD, Without JVD or thyroid abnormality Respiratory: Diminished, Crackles/rales Cardiovascular: Irregular heart rate/rhythm, Systolic murmur Gastrointestinal: Normal bowel sounds, Soft and benign, Non-distended, No tenderness Musculoskeletal: No clubbing, No tenderness, Swelling Integumentary: No rashes Neurological: Normal speech, Normal strength at 5/5 x4 extr, Normal tone, Sensation intact, Cranial nerves 3-12 intact, Normal affect Lymphatics: No axilla or inguinal lymphadenopathy Review of Systems Per HPI Physical Examination - Vital Signs Temperature: 97.7 F Blood Pressure: 171/80 Pulse: 66 Respirations: 18 Pulse Ox (%): 93 - Studies Laboratory Data (last 24 hrs) 09/13/23 09/13/23 09/13/23 11:58 11:58 11:58 WBC 5.90 Hgb 12.2 L Hct 36.7 L Plt Count 230 PT 12.8 H INR 1.17 Sodium 141 Potassium 3.9 BUN 21 H Creatinine 1.10 Glucose 105 Magnesium 2.0 Assessment And Plan - Plan Assessment & Plan - Problems (Diagnosis) (1) Acute CHF (congestive heart failure) Current Visit: Yes Status: Acute (2) Atrial fibrillationCurrent Visit: Yes Status: Acute (3) Uncontrolled hypertensionCurrent Visit: Yes Status: Acute PLAN: 1. Echocardiogram 2. Continue with cardiac meds 3. Out of bed and ambulate 4. Cardiology consultation 5. Aggressive diuresis 6. Strict I's and O's 7. Daily weights 8. Education regarding diet and treatment of congestive heart failure 9. Cardiology to start sotalol, start Eliquis 5 mg p.o. twice daily Increase Lasix to 40 twice daily, continue Lopressor 50 twice daily continue lisinopril 40 Repeat EKG after third dose of sotalol Discharge Plan: Home Plan to discharge in: 24 Hours Discharge Plan: Home - Code Status/Comfort Care Code Status: Full Code Critical Care: No Time Spent Managing PTS Care (In Minutes): 35
--- NOTE | 2023-09-14 07:47 | P.DS ---
Admission Date: 09/13/23 Discharge Date: 09/15/23 Disposition: ROUTINE DISCHARGE Reason for Admission: Shortness of breath Brief History of Present Illness: 77-year-old gentleman with a history of atrial fibrillation. Patient states he has been short of breath for the last few days. He was treated for bronchitis a week ago. His respiratory status has not improved so he decided to come into the emergency room for further evaluation. In the emergency room patient was in atrial fibrillation with rapid ventricular response. Patient also was short of breath, and patient was found to have atrial fibrillation. Patient was hypotensive. Blood pressure was 170s over 110. Decision was made to admit the patient to the hospital for further evaluation. Patient was anxious to get home. He stated he was feeling better. - Physical Exam General: Alert, In no apparent distress, Oriented x3 HEENT: Atraumatic, PERRLA, Mucous membr. moist/pink, EOMI, Sclerae nonicteric Neck: Supple, 2+ carotid pulse no bruit, No LAD, Without JVD or thyroid abnormality Respiratory: Diminished, Crackles/rales Cardiovascular: Irregular heart rate/rhythm, Systolic murmur Gastrointestinal: Normal bowel sounds, Soft and benign, Non-distended, No tenderness Musculoskeletal: No clubbing, No tenderness, Swelling Integumentary: No rashes Neurological: Normal speech, Normal strength at 5/5 x4 extr, Normal tone, Sensation intact, Cranial nerves 3-12 intact, Normal affect Lymphatics: No axilla or inguinal lymphadenopathy Hospital Course: 77-year-old male with a past medical history of atrial fibrillation, hypertension, reported to the emergency room with shortness of breath. He was noted to have new onset A-fib RVR acute congestive heart failure. He was evaluated by cardiology, started on sotalol, treated with IV diuretics. Condition improved with moderate amount of diuresing. Plan to discharge home follow-up with primary care in 1 to 2 weeks, follow-up with cardiology in 1 to 2 weeks after discharge. Problem New onset A-fib RVR Acute heart failure Hypertension Echo ordered, Educate on congestive heart failure, low-sodium diet Lasix p.o. 40 twice daily, Start sotalol 80 mg p.o. twice daily Start Eliquis 5 mg p.o. twice daily Educate on chronic anticoagulation Continue home medicines as previously prescribed GOAL: Clear understanding of disease process INSTRUCTIONS: Physician Discharge Instructions: -Follow-up with PCP in 1 to 2 weeks -Please call nursing station at [phone] if any nursing or medication questions -Return to the emergency room if symptoms worsen Diet: ADA, low sodium Activity: Fall precautions Vital Signs/Physical Exam: Temp Pulse Resp BP Pulse Ox 97.7 F 66 18 171/80 H 93 09/14/23 07:36 09/14/23 07:36 09/14/23 07:36 09/14/23 07:36 09/14/23 07:36 Laboratory Data at Discharge: WBC 5.70 thou/uL (4.3-10.9) 09/14/23 06:45 Hgb 13.1 g/dL (13.6-17.9) L 09/14/23 06:45 Hct 39.3 % (39.6-49.0) L 09/14/23 06:45 Plt Count 258 thou/uL (152-406) 09/14/23 06:45 PT 12.8 SECONDS (9.5-12.5) H 09/13/23 11:58 INR 1.17 09/13/23 11:58 Sodium 141 mEq/L (136-145) 09/13/23 11:58 Potassium 3.9 mEq/L (3.5-5.1) 09/13/23 11:58 BUN 21 mg/dL (7-18) H 09/13/23 11:58 Creatinine 1.10 mg/dL (0.70-1.30) 09/13/23 11:58 Glucose 105 mg/dL (74-106) 09/13/23 11:58 Magnesium 2.0 mg/dL (1.6-2.4) 09/13/23 11:58 Home Medications: Amlodipine Besylate 10 mg PO DAILY 09/13/23 Aspirin [Aspirin EC 81 MG] 81 mg PO DAILY 09/13/23 Cholecalciferol (Vitamin D3) [Vitamin D 5,000 IU Cap*] 1 tab PO DAILY 09/13/23 Insulin Degludec [Tresiba Flextouch U-100] 20 units SQ SEECOM 09/13/23 Lisinopril/Hydrochlorothiazide [Lisinopril-Hctz 20-12.5 mg Tab] 2 tab PO DAILY 09/13/23 Metformin ER [Glucophage ER*] 1,000 mg PO BID 09/13/23 Metoprolol Succinate [Toprol Xl] 100 mg PO DAILY 09/13/23 Simvastatin 20 mg PO DAILY 09/13/23 Diet: AHA Followup: Calixto Greene DO [Primary Care Provider] - Time spent managing pt's care (in minutes): 55
[2023-09-14] MEDS: POTASSIUM 25 MEQ EFFERV TAB PO SCH (08:01)
[2023-09-14 08:02] LABS: Albumin 3.4 g/dL (3.4-5.0); Albumin/Globulin Ratio 1.1 (1.1-1.8); Anion Gap 7.6 mEq/L (5.0-15.0); Bilirubin Total 0.8 mg/dL (0.2-1.0); Globulin 3.2 g/dL (2.3-3.5); Magnesium 2.1 mg/dL (1.6-2.4); Potassium 3.6 mEq/L (3.5-5.1); Protein, Total 6.6 g/dL (6.4-8.2); Troponin High Sensitivity 52.3 pg/mL (<58.9)
[2023-09-14] MEDS: ASPIRIN EC 81 MG TAB PO SCH ×2 (08:02→08:03)
[2023-09-14] MEDS: ATORVASTATIN 10 MG TAB PO SCH (08:02)
[2023-09-14] MEDS: VITAMIN D 5,000 UNIT CAP PO SCH (08:02)
[2023-09-14] MEDS: AMLODIPINE 10 MG TAB PO SCH (08:02)
[2023-09-14] MEDS: hydroCHLOROthiazide 25 MG TAB PO SCH (08:02)
[2023-09-14] MEDS: METFORMIN ER 500 MG TAB PO SCH (08:03)
[2023-09-14] MEDS: lisinopriL 20 MG TAB PO SCH (08:03)
[2023-09-14 08:24] LABS: Blood Morphology Comment NOT SEEN (NOT SEEN); Platelet Estimate ADEQ; White Blood Cell Scan OK (OK)
--- NOTE | 2023-09-14 13:49 | P.CNS ---
Date of Consult: 09/14/23 Chief Complaint: Shortness of breath History of Present Illness: Patient with PMH og HTN, presented with SOB, CLAY that has been going on for 1 week, denies chest pain, no palpitations, no dizziness, no syncope. Allergies No Known Allergies Allergy (Unverified 09/13/23 15:37) Home Medications: Amlodipine Besylate 10 mg PO DAILY 09/13/23 Aspirin [Aspirin EC 81 MG] 81 mg PO DAILY 09/13/23 Cholecalciferol (Vitamin D3) [Vitamin D 5,000 IU Cap*] 1 tab PO DAILY 09/13/23 Insulin Degludec [Tresiba Flextouch U-100] 20 units SQ SEECOM 09/13/23 Lisinopril/Hydrochlorothiazide [Lisinopril-Hctz 20-12.5 mg Tab] 2 tab PO DAILY 09/13/23 Metformin ER [Glucophage ER*] 1,000 mg PO BID 09/13/23 Metoprolol Succinate [Toprol Xl] 100 mg PO DAILY 09/13/23 Simvastatin 20 mg PO DAILY 09/13/23 - Past Medical/Surgical History -: Atrial fibrillation -: NIDDM -: HTN -: HLD - Family History Father Family History: Reviewed- Non-Contributory - Social History Smoking Status: Former smoker Alcohol use: No CD- Drugs: No Place of Residence: Home Review of Systems 10-point ROS is otherwise unremarkable Physical Examination Temp Pulse Resp BP Pulse Ox 97.1 F 65 16 156/95 H 95 09/14/23 12:00 09/14/23 12:00 09/14/23 12:00 09/14/23 12:00 09/14/23 12:00 General: Alert, Oriented x3 HEENT: Atraumatic Neck: Supple, Without JVD or thyroid abnormality Respiratory: Crackles/rales Cardiovascular: Edema, Irregular heart rate/rhythm Gastrointestinal: Normal bowel sounds - Problems (1) Acute CHF (congestive heart failure) Current Visit: Yes Status: Acute Plan: increase IV lasix to 40 mg BID Continue lopressor 50 mg po BID Continue Lisinopril 40 mg daily monitor input and output and correct electrolytes. (2) Atrial fibrillation Current Visit: Yes Status: Acute Plan: start patient on Sotalol 80 mg po BID Repeat EKG after each dose until 3 doses are given. Start patient on Eliquis 5 mg po BID if patient not cardioverted by saturday and echo shows normal EF then possible BIBI guided DCCV can be done.
[2023-09-14] MEDS ORDERED: SOTALOL HCL 80 MG TAB PO SCH (15:17)
[2023-09-14] MEDS: SOTALOL HCL 80 MG TAB PO SCH (17:36)
[2023-09-14] MEDS: APIXABAN 5 MG TABLET PO SCH (21:26)
--- NOTE | 2023-09-15 07:13 | P.PN ---
Subjective Date of Service: 09/15/23 Chief Complaint: Shortness of breath Presented with shortness of breath, shortness of breath improved with Lasix, new onset A-fib started on sotalol 80 twice daily, Eliquis 5 mg twice daily Will start sotalol monitor EKG, prolonged QT - Physical Exam General: Alert, In no apparent distress, Oriented x3 HEENT: Atraumatic, PERRLA, Mucous membr. moist/pink, EOMI, Sclerae nonicteric Neck: Supple, 2+ carotid pulse no bruit, No LAD, Without JVD or thyroid abnormality Respiratory: Diminished, Crackles/rales Cardiovascular: Irregular heart rate/rhythm, Systolic murmur Gastrointestinal: Normal bowel sounds, Soft and benign, Non-distended, No tenderness Musculoskeletal: No clubbing, No tenderness, Swelling Integumentary: No rashes Neurological: Normal speech, Normal strength at 5/5 x4 extr, Normal tone, Sensation intact, Cranial nerves 3-12 intact, Normal affect Lymphatics: No axilla or inguinal lymphadenopathy Review of Systems Per HPI Physical Examination - Vital Signs Temperature: 97.6 F Blood Pressure: 182/81 Pulse: 64 Respirations: 17 Pulse Ox (%): 97 Assessment And Plan - Plan Assessment & Plan - Problems (Diagnosis) (1) Acute CHF (congestive heart failure) Current Visit: Yes Status: Acute (2) Atrial fibrillationCurrent Visit: Yes Status: Acute (3) Uncontrolled hypertensionCurrent Visit: Yes Status: Acute PLAN: 1. Echocardiogram 2. Continue with cardiac meds 3. Out of bed and ambulate 4. Cardiology consultation 5. Aggressive diuresis 6. Strict I's and O's 7. Daily weights 8. Education regarding diet and treatment of congestive heart failure 9. Cardiology to start sotalol, start Eliquis 5 mg p.o. twice daily Increase Lasix to 40 twice daily, continue Lopressor 50 twice daily continue lisinopril 40 Repeat EKG after third dose of sotalol if patient not cardioverted by saturday and echo shows normal EF then possible BIBI guided DCCV can be done. Discharge Plan: Home Plan to discharge in: 24 Hours Discharge Plan: Home Critical Care: No Time Spent Managing PTS Care (In Minutes): 35
[2023-09-15] MEDS: FUROSEMIDE 40 MG/4 ML VIAL IV SCH (09:23)
[2023-09-15 09:25] LABS: Absolute Basophils 0.1 K/uL (0-0.5); Absolute Eosinophils 0.2 K/uL (0-0.5); Absolute Lymphocytes (CBC) 1.7 K/uL (0.7-4.9); Absolute Monocytes 0.5 K/uL (0.1-1.3); Absolute Neutrophil 2.4 K/uL (1.8-8.0); Basophils % 1.2 % (0-1.3); Eosinophils % 4.1 % (0-4.4); Hematocrit 39.1 % (39.6-49.0); Lymphocytes % 35.2 % (15.3-44.8); MCH 31.5 pg (27.0-35.0); MCHC 33.3 g/dL (32.0-36.0); MCV 94.6 fL (80-100); MPV 9.1 fL (7.6-11.3); Monocytes % 10.6 % (3.3-12.3); Neutrophils % 48.9 % (41.7-73.7); Nucleated Red Blood Cells % 0.1 % (0-0); Platelets 236 thou/uL (152-406); RBC Red Blood Cell Count 4.14 M/uL (4.33-5.43)
[2023-09-15 09:45] LABS: Anion Gap 7.6 mEq/L (5.0-15.0); Potassium 3.6 mEq/L (3.5-5.1)
--- NOTE | 2023-09-15 13:08 | P.PN ---
Subjective Date of Service: 09/15/23 Chief Complaint: Shortness of breath Subjective: No new changes Review of Systems 10-point ROS is otherwise unremarkable Physical Examination - Vital Signs Temperature: 97.6 F Blood Pressure: 182/81 Pulse: 64 Respirations: 17 Pulse Ox (%): 97 - Physical Exam General: Alert HEENT: Atraumatic Neck: Supple Respiratory: Clear to auscultation bilaterally Cardiovascular: No edema, Irregular heart rate/rhythm Gastrointestinal: Normal bowel sounds Assessment And Plan - Current Problems (Diagnosis) (1) Acute CHF (congestive heart failure) Current Visit: Yes Status: Acute Plan: switch lasix to 40 mg PO BID Continue lopressor 50 mg po BID Continue Lisinopril 40 mg daily monitor input and output and correct electrolytes. (2) Atrial fibrillation Current Visit: Yes Status: Acute Plan: start patient on Sotalol 80 mg po BID Repeat EKG after each dose until 3 doses are given. Start patient on Eliquis 5 mg po BID NPO after midnight for BIBI guided DCCV in am.
[2023-09-16 04:22] LABS: Absolute Eosinophils 0.2 K/uL (0-0.5); Absolute Lymphocytes (CBC) 2.1 K/uL (0.7-4.9); Absolute Monocytes 0.6 K/uL (0.1-1.3); Absolute Neutrophil 2.6 K/uL (1.8-8.0); Basophils % 0.8 % (0-1.3); Eosinophils % 4.1 % (0-4.4); Hematocrit 40.8 % (39.6-49.0); Hemoglobin 13.7 g/dL (13.6-17.9); Lymphocytes % 37.8 % (15.3-44.8); MCH 31.7 pg (27.0-35.0); MCHC 33.5 g/dL (32.0-36.0); MCV 94.5 fL (80-100); Monocytes % 11.4 % (3.3-12.3); Neutrophils % 45.9 % (41.7-73.7); Nucleated Red Blood Cells % 0.1 % (0-0); Platelets 245 thou/uL (152-406); RBC Red Blood Cell Count 4.32 M/uL (4.33-5.43); Red Cell Distribution Width 14.2 % (12.1-15.2)
[2023-09-16 04:51] LABS: Anion Gap 9.8 mEq/L (5.0-15.0); Potassium 3.8 mEq/L (3.5-5.1)
[2023-09-16 05:12] VITALS: BMI 29.1
[2023-09-16 05:46] VITALS: O2SAT 97
--- NOTE | 2023-09-16 10:41 | P.PN ---
Subjective Date of Service: 09/16/23 Chief Complaint: Shortness of breath Subjective: Improving (pt states he is feeling better. Nervous about BIBI today) Review of Systems 10-point ROS is otherwise unremarkable General: Unremarkable Eyes: Unremarkable ENT: Unremarkable Respiratory: As per HPI Cardiovascular: As per HPI Gastrointestinal: Unremarkable Genitourinary: Unremarkable Musculoskeletal: Unremarkable Integumentary: Unremarkable Neurological: Unremarkable Lymphatics: Unremarkable Physical Examination - Vital Signs Temperature: 98.4 F Blood Pressure: 109/62 Pulse: 63 Respirations: 17 Pulse Ox (%): 97 - Physical Exam General: Alert, In no apparent distress, Oriented x3 HEENT: Atraumatic, Normocephalic, PERRLA Neck: Supple, 2+ carotid pulse no bruit Respiratory: Clear to auscultation bilaterally, Normal air movement Cardiovascular: Normal pulses, Regular rate/rhythm, Systolic murmur Capillary refill: <2 Seconds Gastrointestinal: Soft and benign Musculoskeletal: No clubbing, No swelling Integumentary: No rashes Neurological: Normal speech, Normal tone Lymphatics: No axilla or inguinal lymphadenopathy External genitalia: Deferred Rectal: Deferred Assessment And Plan - Plan (1) Acute CHF (congestive heart failure) Current Visit: Yes Status: Acute (2) Atrial fibrillationCurrent Visit: Yes Status: Acute (3) Uncontrolled hypertensionCurrent Visit: Yes Status: Acute PLAN: 1. Echocardiogram - done 2. Continue with cardiac medications 3. Out of bed and ambulate 4. Cardiology consultation 5. Aggressive diuresis 6. Strict I's and O's 7. Daily weights 8. Education regarding diet and treatment of congestive heart failure 9. Cardiology to start sotalol, start Eliquis 5 mg p.o. twice daily Increase Lasix to 40 twice daily, continue Lopressor 50 twice daily continue lisinopril 40 Repeat EKG after third dose of sotalol, if patient not cardioverted by saturday and echo shows normal EF then possible BIBI guided DCCV can be done. EKG showed resolution of a. fib. will eval QTc and will discharge home at [facility] rdiology recommendation. Discharge Plan: Home Plan to discharge in: 24 Hours Discharge Plan: Home Critical Care: No Time Spent Managing PTS Care (In Minutes): 35 Discharge Plan: Home Plan to discharge in: 24 Hours - Code Status/Comfort Care Code Status Assessed: Yes (Full)
[2023-09-16 12:42] VITALS: BP 113/66; TEMP 98
--- NOTE | 2023-09-16 12:42 | ECHO ---
HEIGHT: 6 ft 4 in WEIGHT: 239 lb 8 oz DATE OF STUDY: 09/16/[address]: Ofelia Dorsey MD 2-DIMENSIONAL: YES M.MODE: YES DOPPLER: YES COLOR FLOW: YES TDS: NO PORTABLE: YES DEFINITY: NO BUBBLE STUDY: NO DIAGNOSIS: ATRIAL FIBRILLATION WITH NEW ONSET CONGESTIVE HEART FAILURE CARDIAC HISTORY: CATHERIZATION: SURGERY: PROSTHETIC VALVE: PACEMAKER: MEASUREMENTS (cm) DIASTOLIC (NORMALS) SYSTOLIC (NORMALS) IVSd 1.2 (0.6-1.2) LA Diam 3.7 (1.9-4.0) LVEF 41% LVIDd 4.8 (3.5-5.7) LVIDs 3.8 (2.0-3.5) %FS 20% LVPWd 1.2 (0.6-1.2) Ao Diam 3.5 (2.0-3.7) 2 DIMENSIONAL ASSESSMENT: RIGHT ATRIUM: NORMAL LEFT ATRIUM: NORMAL RIGHT VENTRICLE: NORMAL LEFT VENTRICLE: NORMAL TRICUSPID VALVE: NORMAL MITRAL VALVE: NORMAL PULMONIC VALVE: NORMAL AORTIC VALVE: TRACE AORTIC REGURGITATION PERICARDIAL EFFUSION: NONE AORTIC ROOT: NORMAL LEFT VENTRICULAR WALL MOTION: NORMAL. DOPPLER/COLOR FLOW: GRADE III DIASTOLIC DYSFUNCTION. COMMENTS: NORMAL LEFT VENTRICULAR SYSTOLIC FUNCTION, EJECTION FRACTION 55-60%, NORMAL WALL MOTION. RESTRICTIVE DIASTOLIC FUNCTION. NORMAL FILLING PRESSURES. RIGHT VENTRICULAR SYSTOLIC PRESSURE 30-35mmHg. TECHNOLOGIST: CARON TIERNEY
--- NOTE | 2023-09-16 13:47 | P.PN ---
Subjective Date of Service: 09/16/23 Chief Complaint: Shortness of breath Subjective: No new changes (Patient self converted into sinus rhythm) Review of Systems 10-point ROS is otherwise unremarkable Physical Examination - Vital Signs Temperature: 98.0 F Blood Pressure: 113/66 Pulse: 62 Respirations: 17 Pulse Ox (%): 95 - Physical Exam General: Alert, Oriented x3 HEENT: Atraumatic Neck: Supple Cardiovascular: No edema, Normal S1 S2 Gastrointestinal: Normal bowel sounds Assessment And Plan - Current Problems (Diagnosis) (1) Acute CHF (congestive heart failure) Current Visit: Yes Status: Acute Plan: switch lasix to 40 mg PO daily Continue lopressor 50 mg po BID Continue Lisinopril 40 mg daily . (2) Atrial fibrillation Current Visit: Yes Status: Acute Plan: Continue Sotalol 80 mg po BID. Continue Eliquis 5 mg po BID
--- NOTE | 2023-09-20 02:47 | P.DS ---
Discharge Date: 09/16/23 Disposition: ROUTINE DISCHARGE Discharge Condition: GOOD Reason for Admission: Shortness of breath Consultations: Cardiology - Problems (1) Acute CHF (congestive heart failure) Status: Acute (2) Atrial fibrillation Status: Acute (3) Uncontrolled hypertension Status: Acute Brief History of Present Illness: Patient is a 77-year-old gentleman with a history of atrial fibrillation. Patient states he has been short of breath for the last few days. He was treated for bronchitis a week ago. His respiratory status has not improved so he decided to come into the emergency room for further evaluation. In the emergency room patient was in atrial fibrillation with rapid ventricular response. Patient also was short of breath, and patient was found to have atrial fibrillation. Patient was hypotensive. Blood pressure was 170s over 110. Decision was made to admit the patient to the hospital for further evaluation. Patient was anxious to get home. He stated he was feeling better. Hospital Course: patient has done well during hospital stay. Patient was started on sotalol. Patient was given anticoagulation. Patient was scheduled to get a BIBI but patient converted into a normal sinus rhythm. Patient is doing well and patient is stable for discharge home. Vital Signs/Physical Exam: Temp Pulse Resp BP Pulse Ox 98.0 F 62 17 113/66 95 09/16/23 13:47 09/16/23 13:47 09/16/23 13:47 09/16/23 13:47 09/16/23 13:47 General: Alert, In no apparent distress, Oriented x3 Laboratory Data at Discharge: WBC 5.70 thou/uL (4.3-10.9) 09/16/23 03:44 Hgb 13.7 g/dL (13.6-17.9) 09/16/23 03:44 Hct 40.8 % (39.6-49.0) 09/16/23 03:44 Plt Count 245 thou/uL (152-406) 09/16/23 03:44 PT 12.8 SECONDS (9.5-12.5) H 09/13/23 11:58 INR 1.17 09/13/23 11:58 Sodium 140 mEq/L (136-145) 09/16/23 03:44 Potassium 3.8 mEq/L (3.5-5.1) 09/16/23 03:44 BUN 19 mg/dL (7-18) H 09/16/23 03:44 Creatinine 1.27 mg/dL (0.70-1.30) 09/16/23 03:44 Glucose 111 mg/dL (74-106) H 09/16/23 03:44 Magnesium 2.1 mg/dL (1.6-2.4) 09/14/23 06:45 Total Bilirubin 0.8 mg/dL (0.2-1.0) 09/14/23 06:45 AST 28 U/L (15-37) 09/14/23 06:45 ALT 63 U/L (16-61) H 09/14/23 06:45 Alkaline Phosphatase 49 U/L (45-117) 09/14/23 06:45 Triglycerides 47 mg/dL (<150) 09/14/23 06:45 Cholesterol 177 mg/dL (<200) 09/14/23 06:45 HDL Cholesterol 100 mg/dL (40-60) H 09/14/23 06:45 Cholesterol/HDL Ratio 1.77 09/14/23 06:45 Home Medications: RX: Amlodipine Besylate 10 mg PO DAILY 09/13/23 RX: Aspirin [Aspirin EC 81 MG] 81 mg PO DAILY 09/13/23 RX: Cholecalciferol (Vitamin D3) [Vitamin D 5,000 IU Cap*] 1 tab PO DAILY 09/13/23 RX: Insulin Degludec [Tresiba Flextouch U-100] 20 units SQ SEECOM 09/13/23 RX: Metformin ER [Glucophage ER*] 1,000 mg PO BID 09/13/23 RX: Metoprolol Succinate [Toprol Xl] 100 mg PO DAILY 09/13/23 RX: Simvastatin 20 mg PO DAILY 09/13/23 RX: Apixaban [Eliquis] 5 mg PO BID #60 tab 09/16/23 RX: Metoprolol Tartrate [Lopressor*] 25 mg PO BID #60 tab 09/16/23 RX: Sotalol HCl [Betapace*] 80 mg PO BID 6AM 6PM #60 tab 09/16/23 RX: Donepezil HCl 10 mg PO DAILY 09/18/23 RX: Iron 1 tab PO DAILY 09/18/23 RX: Memantine HCl 10 mg PO BID 09/18/23 RX: Tamsulosin HCl [Flomax] 0.4 mg PO DAILY 09/18/23 RX: Vit B Comp/C/FA/Iron Sulf/Scotty [Stress Formula with Iron Tab] 1 tab PO DAILY 09/18/23 New Medications: RX: Sotalol HCl [Betapace*] 80 mg PO BID 6AM 6PM #60 tab RX: Apixaban [Eliquis] 5 mg PO BID #60 tab RX: Metoprolol Tartrate [Lopressor*] 25 mg PO BID #60 tab Physician Discharge Instructions: -DC IV and DC home -Follow-up with PCP in 1 to 2 weeks -Follow-up with Cardiology in 1 to 2 weeks -Please call Dr. Dorsey at [phone] if any questions regarding hospital stay -Please call nursing station at [phone] if any nursing or medication questions -Return to the emergency room if symptoms worsen Diet: AHA Activity: Fall precautions Followup: Calixto Greene, [Primary Care Provider] - Time spent managing pt's care (in minutes): 35
--- NOTE | 2023-09-20 17:42 | EKG ---
Test Date: 2023-09-16 Test Time: 10:23:03 Director Of Integrated Marketing: BUCK MEASUREMENT RESULTS: Intervals: Rate: 60 SC: 204 QRSD: 96 QT: 500 QTc: 500 [place]: P: 79 SC: 204 QRS: 77 T: -19 INTERPRETIVE STATEMENTS: Normal sinus rhythm with sinus arrhythmia Possible Lateral infarct, age undetermined Prolonged QT Abnormal ECG Compared to ECG 09/15/2023 17:55:23 Atrial flutter no longer present Ventricular premature complex(es) no longer present Myocardial infarct finding still present Electronically Signed On 09-20-23 17:28:38 CDT by John Webb
--- NOTE | 2023-09-20 17:44 | EKG ---
Test Date: 2023-09-15 Test Time: 17:55:23 Classified Advertising Supervisor: RG MEASUREMENT RESULTS: Intervals: Rate: 67 [place]: QRSD: 92 QT: 482 QTc: 509 [place]: P: 265 [place]: QRS: 37 T: 21 INTERPRETIVE STATEMENTS: Atrial flutter with variable AV block with premature ventricular or aberrantly conducted complexes Inferior-posterior infarct, age undetermined Prolonged QT Abnormal ECG Compared to ECG 09/15/2023 07:48:39 Ventricular premature complex(es) now present Prolonged QT interval now present Atrial fibrillation no longer present Myocardial infarct finding still present Electronically Signed On 09-20-23 17:29:09 CDT by John Webb
--- NOTE | 2023-09-20 17:45 | EKG ---
Test Date: 2023-09-15 Test Time: 07:48:39 [employer] Host: MARIBEL MEASUREMENT RESULTS: Intervals: Rate: 47 [place]: QRSD: 98 QT: 492 QTc: 435 [place]: P: NC: QRS: 94 T: -52 INTERPRETIVE STATEMENTS: Atrial fibrillation with slow ventricular response Possible Right ventricular hypertrophy Possible Inferior infarct, age undetermined Possible Anterolateral infarct, age undetermined Abnormal ECG Compared to ECG 09/15/2023 07:33:20 No significant changes Electronically Signed On 09-20-23 17:29:30 CDT by John Webb
--- NOTE | 2023-09-20 17:45 | EKG ---
Test Date: 2023-09-15 Test Time: 07:33:20 Facility Maintenance Manager: MARIBEL MEASUREMENT RESULTS: Intervals: Rate: 56 [place]: QRSD: 100 QT: 498 QTc: 480 [place]: P: MS: QRS: 90 T: -56 INTERPRETIVE STATEMENTS: Atrial fibrillation with slow ventricular response Possible Right ventricular hypertrophy Possible Inferior infarct, age undetermined Possible Anterolateral infarct, age undetermined Abnormal ECG Compared to ECG 09/14/2023 18:30:45 No significant changes Electronically Signed On 09-20-23 17:29:32 CDT by John Webb
--- NOTE | 2023-09-20 17:47 | EKG ---
Test Date: 2023-09-14 Test Time: 18:30:45 Acoustics Teacher: RG MEASUREMENT RESULTS: Intervals: Rate: 63 [place]: QRSD: 94 QT: 456 QTc: 466 [place]: P: DC: QRS: 65 T: 22 INTERPRETIVE STATEMENTS: Atrial fibrillation Possible Right ventricular hypertrophy Cannot rule out Anterior infarct, age undetermined Abnormal ECG Compared to ECG 09/13/2023 11:51:49 Myocardial infarct finding now present Electronically Signed On 09-20-23 17:30:32 CDT by John Webb
--- NOTE | 2023-09-20 17:54 | EKG ---
Test Date: 2023-09-13 Test Time: 11:51:49 Bridal Consultant: MB MEASUREMENT RESULTS: Intervals: Rate: 76 [place]: QRSD: 98 QT: 406 QTc: 456 [place]: P: NC: QRS: 98 T: 6 INTERPRETIVE STATEMENTS: Atrial fibrillation Abnormal ECG Compared to ECG 06/20/2018 10:26:06 Sinus rhythm no longer present Myocardial infarct finding no longer present Electronically Signed On 09-20-23 17:33:21 CDT by John Webb
== END 2023-09-16 15:45 | disposition home or self-care (01) | DRG 291 ==
LOC: ER 11:12 → INTOOBSV 13:59 → ERHOLD 13:59 → OBSVTOIN 13:59 → 2ND 14:43 → OBSVTOIN 09-15 11:29
PROVIDERS: ADMIT Hospitalist; ATTEND Hospitalist
DX: I11.0 Hypertensive heart disease with heart failure (principal); I50.21 Acute systolic (congestive) heart failure; I48.91 Unspecified atrial fibrillation; E11.9 Type 2 diabetes mellitus without complications; E78.00 Pure hypercholesterolemia, unspecified; Z79.4 Long term (current) use of insulin; Z79.84 Long term (current) use of oral hypoglycemic drugs; Z79.82 Long term (current) use of aspirin; Z79.899 Other long term (current) drug therapy; Z87.891 Personal history of nicotine dependence
CPT/HCPCS: 36415; 71046; 80048; 80053; 80061; 82947; 83735; 83880; 84484; 85025; 85610; 93005; 93306; 96374; 99285; G0378; J1650; J1940